=== PATIENT | male | born 1965 | race American Indian/Alaskan Native ===

== ENCOUNTER 2017-10-10 11:56 | Emergency (ER) | payer SELFPAY ==
[2017-10-10 16:56] VITALS: BP 115/72
--- NOTE | 2017-10-10 18:08 | Emergency Department Report ---
ED General Adult HPI - General Chief complaint: Upper Respiratory Infection Stated complaint: COLD SYMPTOMS Time Seen by Provider: 10/10/17 17:20 Source: patient Mode of arrival: Ambulatory Limitations: No Limitations - History of Present Illness Initial comments: PT c/o "stuffy nose" PT states symptoms have progressively worsened over the last 4- 6 months. PT reports drainage that gets stuck in his throat. PT states he has to "work hard" to get it up. PT states he has had nasal drainage and intermittent headaches. PT states he has not taken anything for the symptoms. Triage note mentioned that pt was SOB. When asked if he felt SOB, he said yes, his nose was stuffy. PT states he can not breathe through his nose. PT denies having difficulty moving air into lungs/ chest. States he can breath with mouth open. Denies wheezing or gasping for air. MD Complaint: C/C/C -: Gradual Location: head, face, chest Consistency: constant Worsens with: other (gradually ) Associated Symptoms: cough, malaise. denies: chest pain, fever/chills, nausea/ vomiting, rash Treatments Prior to Arrival: none - Related Data Previous Rx's Medication Instructions Recorded Last Taken Type Amoxicillin/K Clav Tab [Augmentin 1 tab PO Q12HR #20 tab 10/10/17 Unknown Rx 875 mg] Benzonatate [Tessalon Perles] 100 mg PO Q8HR PRN #12 capsule 10/10/17 Unknown Rx Allergies Allergy/AdvReac Type Severity Reaction Status Date / Time No Known Allergies Allergy Verified 08/16/15 13:26 ED Review of Systems ROS: Stated complaint: COLD SYMPTOMS Other details as noted in HPI Comment: All other systems reviewed and negative Constitutional: malaise. denies: chills, fever ENT: throat pain, congestion. denies: ear pain, hearing loss Respiratory: cough. denies: shortness of breath, wheezing Cardiovascular: denies: chest pain ED Past Medical Hx - Past Medical History Hx Kidney Stones: Yes - Social History Smoking Status: Current Some Day Smoker Substance Use Type: None - Medications Home Medications: Home Medications Medication Instructions Recorded Confirmed Last Taken Type Amoxicillin/K Clav Tab [Augmentin 1 tab PO Q12HR #20 tab 10/10/17 Unknown Rx 875 mg] Benzonatate [Tessalon Perles] 100 mg PO Q8HR PRN #12 capsule 12/11/17 Unknown Rx ED Physical Exam - General Limitations: No Limitations General appearance: alert, in no apparent distress - Head Head exam: Present: atraumatic, normocephalic, other (allergic shinners ) - Eye Eye exam: Present: normal appearance, PERRL, EOMI. Absent: conjunctival injection, nystagmus - ENT ENT exam: Present: mucous membranes moist, TM's normal bilaterally, normal external ear exam, other (nasal drainage noted, + R frontal sinus ttp ) - Neck Neck exam: Present: normal inspection, full ROM. Absent: lymphadenopathy - Respiratory Respiratory exam: Present: normal lung sounds bilaterally. Absent: respiratory distress, wheezes, rales, rhonchi, chest wall tenderness - Cardiovascular Cardiovascular Exam: Present: regular rate, normal rhythm, normal heart sounds - GI/Abdominal GI/Abdominal exam: Present: soft. Absent: tenderness, guarding - Extremities Exam Extremities exam: Present: normal inspection, full ROM - Back Exam Back exam: Present: normal inspection, full ROM. Absent: tenderness, CVA tenderness (R), CVA tenderness (L) - Neurological Exam Neurological exam: Present: alert, oriented X3, normal gait - Psychiatric Psychiatric exam: Present: normal affect, normal mood - Skin Skin exam: Present: warm, dry, intact, normal color ED Course Vital Signs 10/10/17 10/10/17 12:35 16:56 Temperature 98.4 F 97.8 F Pulse Rate 84 64 Respiratory 18 18 Rate Blood Pressure 133/92 Blood Pressure 115/72 [Right] O2 Sat by Pulse 100 Oximetry - Reevaluation(s) Reevaluation #1: 10/10/17 18:35 PT aware of XR result and plan of care. - Pulse Oximetry Interpretation Digit-Finger Initial Pulse Oximetry Readin Actions Taken: none ED Medical Decision Making - Radiology Data Radiology results: report reviewed CXR -NAP - Differential Diagnosis pna, bronchitis, sinusitis Critical Care Time: No Critical care attestation.: If time is entered above; I have spent that time in minutes in the direct care of this critically ill patient, excluding procedure time. ED Disposition Clinical Impression: Sinusitis Qualifiers: Sinusitis location: frontal Chronicity: acute Recurrence: not specified as recurrent Qualified Code(s): J01.10 - Acute frontal sinusitis, unspecified Disposition: DC-01 TO HOME OR SELFCARE Is pt being admited?: No Does the pt Need Aspirin: No Condition: Stable Instructions: Sinusitis (ED), Acute Cough (ED) Additional Instructions: drink plenty of water OTC Motrin/ Tylenol as needed for aches or pains Finish all of your antibiotics OTC normal saline nasal spray Prescriptions: Amoxicillin/K Clav Tab [Augmentin 875 mg] 1 tab PO Q12HR #20 tab Benzonatate [Tessalon Perles] 100 mg PO Q8HR PRN #12 capsule PRN Reason: Cough Referrals: TATE REID DO [Primary Care Provider] - 3-5 Days ISAAK CORTES MD [Staff Physician] - 3-5 Days [facility] [Outside] - 3-5 Days Forms: Accompanied Note, Work/School Release Form(ED) Time of Disposition: 18:41
--- NOTE | 2017-10-10 18:30 | XRay Report ---
FINAL REPORT EXAM: XR CHEST ROUTINE 2V HISTORY: cough x 4 months TECHNIQUE: Two view chest PA and lateral PRIORS: None. FINDINGS: Cardiac and mediastinal contours are unremarkable. No focal pulmonary infiltrate is identified. No pleural fluid collection seen. Pulmonary vasculature is unremarkable. IMPRESSION: Negative two-view chest
== END 2017-10-10 18:55 | disposition home or self-care (01) ==
LOC: ED 11:56
DX: J01.10 Acute frontal sinusitis, unspecified (principal); F17.200 Nicotine dependence, unspecified, uncomplicated; Z87.442 Personal history of urinary calculi
CPT/HCPCS: 71020; 99283

== ENCOUNTER 2018-03-27 14:46 | Inpatient (IN) | payer SELFPAY ==
[2018-03-27] MEDS ORDERED: ASPIRIN PO ONE (15:53)
[2018-03-27 16:23] LABS: Basophils % (Auto) 0.5 % (0.0-1.8); Eosinophils # (Auto) 0.2 K/mm3 (0.0-0.4); Eosinophils % (Auto) 2.6 % (0.0-4.3); Hematocrit 46.1 % (35.5-45.6); Hemoglobin 15.5 gm/dl (11.8-15.2); Lymphocytes # (Auto) 1.5 K/mm3 (1.2-5.4); Lymphocytes % (Auto) 16.1 % (13.4-35.0); Mean Corpuscular HGB Conc 34 % (32-34); Mean Corpuscular Hemoglobin 29 pg (28-32); Mean Corpuscular Volume 86 fl (84-94); Monocytes # (Auto) 0.8 K/mm3 (0.0-0.8); Monocytes % (Auto) 8.2 % (0.0-7.3); Platelet Count 316 K/mm3 (140-440); Red Blood Count 5.34 M/mm3 (3.65-5.03); Red Cell Distribution Width 14.1 % (13.2-15.2)
[2018-03-27 16:36] LABS: BUN/Creatinine Ratio 18; Blood Urea Nitrogen 16 mg/dL (9-20); Calcium 8.4 mg/dL (8.4-10.2); Hemolysis Index 8
--- NOTE | 2018-03-27 17:56 | Emergency Department Report ---
HPI - General Chief Complaint: Chest Pain Time Seen by Provider: 03/27/18 17:39 - HPI HPI: Room 6 The patient is a 52-year-old male presenting with a chief complaint of chest pain. The patient states he walked to a blood donation center and donated blood at 09:00. The patient states he walked home and felt dehydrated as he was very diaphoretic. The patient states he sat down and relax to improve. At approximate 14:00 patient states he developed sharp constant substernal chest pain associated with diaphoresis. Patient denies shortness of breath nausea or vomiting. The patient states his pain persisted until approximately one hour after arriving in the emergency department. The patient states she's never had a stress test or cardiac catheterization Location: Chest Duration: [See above] Quality: Sharp Severity: Currently 0/10 Modifying factors: [see above] Context: [see above] Mode of transportation: [not driving] ED Past Medical Hx - Past Medical History Previous Medical History?: Yes Hx Kidney Stones: Yes - Surgical History Past Surgical History?: No - Family History Family history: no significant - Social History Smoking Status: Current Some Day Smoker Substance Use Type: None (denies illicit drug use) - Medications Home Medications: Home Medications Medication Instructions Recorded Confirmed Last Taken Type No Known Home Medications [No 03/27/18 03/27/18 Unknown History Reported Home Medications] ED Review of Systems ROS: Stated complaint: CHEST PAIN Other details as noted in HPI Constitutional: diaphoresis Eyes: denies: eye pain ENT: denies: throat pain Respiratory: denies: shortness of breath Cardiovascular: chest pain Gastrointestinal: denies: abdominal pain, nausea, vomiting Genitourinary: denies: dysuria Musculoskeletal: denies: back pain Neurological: denies: headache Physical Exam - Physical Exam Vital Signs: Vital Signs 03/27/18 03/27/18 03/27/18 15:39 15:42 15:57 Temperature 98.5 F Pulse Rate 69 65 Respiratory 13 13 Rate Blood Pressure 128/90 O2 Sat by Pulse 98 97 98 Oximetry 03/27/18 03/27/18 03/27/18 15:59 16:00 17:00 Temperature Pulse Rate 69 64 58 L Respiratory 13 16 Rate Blood Pressure 124/87 128/82 O2 Sat by Pulse 98 97 Oximetry Physical Exam: GENERAL: The patient is well-developed well-nourished male lying on stretcher not appear to be in acute distress. [] HEENT: Normocephalic. Atraumatic. Extraocular motions are intact. Patient has moist mucous membranes. NECK: Supple. Trachea midline CHEST/LUNGS: Clear to auscultation. There is no respiratory distress noted. HEART/CARDIOVASCULAR: Regular. There is no tachycardia. There is no gallop rub or murmur. ABDOMEN: Abdomen is soft, nontender. Patient has normal bowel sounds. There is no abdominal distention. SKIN: There is no rash. There is no edema. There is no diaphoresis. NEURO: The patient is awake, alert, and oriented. The patient is cooperative. The patient has normal speech MUSCULOSKELETAL: There is no evidence of acute injury. ED Course Vital Signs 03/27/18 03/27/18 03/27/18 15:39 15:42 15:57 Temperature 98.5 F Pulse Rate 69 65 Respiratory 13 13 Rate Blood Pressure 128/90 O2 Sat by Pulse 98 97 98 Oximetry 03/27/18 03/27/18 03/27/18 15:59 16:00 17:00 Temperature Pulse Rate 69 64 58 L Respiratory 13 16 Rate Blood Pressure 124/87 128/82 O2 Sat by Pulse 98 97 Oximetry ED Medical Decision Making - Lab Data Result diagrams: 03/27/18 15:59 03/27/18 15:59 Laboratory Tests 03/27/18 03/27/18 15:59 15:59 WBC 9.4 RBC 5.34 H Hgb 15.5 H Hct 46.1 H MCV 86 MCH 29 MCHC 34 RDW 14.1 Plt Count 316 Lymph % (Auto) 16.1 Long % (Auto) 8.2 H Eos % (Auto) 2.6 Baso % (Auto) 0.5 Lymph # 1.5 Long # 0.8 Eos # 0.2 Baso # 0.0 Seg Neutrophils % 72.6 H Seg Neutrophils # 6.8 Sodium 137 Potassium 4.1 Chloride 101.0 Carbon Dioxide 27 Anion Gap 13 BUN 16 Creatinine 0.9 Estimated GFR > 60 BUN/Creatinine Ratio 18 Glucose 105 H Calcium 8.4 Troponin T < 0.010 - EKG Data -: EKG Interpreted by De EKG shows normal: sinus rhythm Rate: normal - EKG Data When compared to previous EKG there are: previous EKG unavailable Interpretation: other (early repolarization) - Radiology Data Radiology results: image reviewed (chest x-ray) interpreted by me: Chest x-ray-no focal infiltrates, no pneumothorax - Differential Diagnosis ACS, GERD, pericarditis Critical care attestation.: If time is entered above; I have spent that time in minutes in the direct care of this critically ill patient, excluding procedure time. ED Disposition Clinical Impression: Chest pain Disposition: DC-09 OP ADMIT IP TO THIS HOSP Is pt being admited?: Yes Does the pt Need Aspirin: Yes Condition: Fair Instructions: Chest Pain (ED) Referrals: PRIMARY CARE,MD [Primary Care Provider] - 3-5 Days Time of Disposition: 18:13 (hospitalist paged (Dr Conner))
--- NOTE | 2018-03-27 18:28 | XRay Report ---
FINAL REPORT EXAM: XR CHEST 1V AP HISTORY: chest pain TECHNIQUE: AP portable view of the chest PRIORS: CXR 10/10/2017 FINDINGS: Lines, tubes, and devices: N/A Lungs and pleura: Trachea is normal in position. Lungs are clear of infiltrate, pleural effusion, vascular congestion, or pneumothorax. No change. Cardiomediastinal silhouette: Cardiac and mediastinal silhouettes are unremarkable. Other: Bony structures are intact. IMPRESSION: No acute cardiopulmonary process seen. No change.
--- NOTE | 2018-03-27 21:43 | History and Physical Report ---
History of Present Illness Date of examination: 03/27/18 Date of admission: 03/27/18 18:45 Chief complaint: Chief complaint: Left-sided chest pain since a.m. History of present illness: DIANE: 52-year-old -Citizen Of [place] male with no significant past medical history except for kidney stones comes in for retrosternal chest pain since morning. Patient also has diaphoresis. Patient apparently donated blood at 9 AM. Since then patient has been having some chest discomfort. And some diaphoresis. No shortness of breath no palpitations. Patient never had a stress test or cardiac cath in the past. No exacerbating or precipitating factors Past Medical History Previous Medical History?: Yes Hx Kidney Stones: Yes Surgical History Past Surgical History?: No Family History Family history: no significant Social History Smoking Status: Current Some Day Smoker Substance Use Type: None (denies illicit drug use) Medications Home Medications: Home Medications Medication Instructions Recorded Confirmed Last Taken Type No Known Home Medications [No 03/27/18 03/27/18 Unknown History Reported Home Medications] Review of Systems ROS: Stated complaint: CHEST PAIN Other details as noted in HPI Constitutional: diaphoresis Eyes: denies: eye pain ENT: denies: throat pain Respiratory: denies: shortness of breath Cardiovascular: chest pain Gastrointestinal: denies: abdominal pain, nausea, vomiting Genitourinary: denies: dysuria Musculoskeletal: denies: back pain Neurological: denies: headache for a 14 point review of systems done--essentially negative. Medications and Allergies Allergies Allergy/AdvReac Type Severity Reaction Status Date / Time No Known Allergies Allergy Verified 08/16/15 13:26 Home Medications Medication Instructions Recorded Confirmed Last Taken Type No Known Home Medications [No 03/27/18 03/27/18 Unknown History Reported Home Medications] Exam - Physical Exam Narrative exam: Lying in bed comfortably - Constitutional Vitals: Temp Pulse Resp BP Pulse Ox 98.6 F 70 20 120/81 99 03/27/18 20:00 03/27/18 20:00 03/27/18 20:00 03/27/18 20:00 03/27/18 20:00 General appearance: Present: no acute distress, well-nourished - EENT Eyes: Present: PERRL ENT: hearing intact, clear oral mucosa - Neck Neck: Present: supple, normal ROM - Respiratory Respiratory effort: normal Respiratory: bilateral: CTA - Cardiovascular Heart rate: 70 Rhythm: regular Heart Sounds: Present: S1 & S2. Absent: rub, click - Extremities Extremities: no ischemia, pulses intact, pulses symmetrical, No edema Peripheral Pulses: within normal limits - Abdominal General gastrointestinal: Present: soft, non-tender, non-distended, normal bowel sounds Male genitourinary: Present: normal - Rectal Rectal Exam: deferred - Integumentary Integumentary: Present: clear, warm, dry - Musculoskeletal Musculoskeletal: gait normal, strength equal bilaterally - Psychiatric Psychiatric: appropriate mood/affect, intact judgment & insight - Neurologic Neurologic: CNII-XII intact, moves all extremities - Allied Health Allied health notes reviewed: nursing, case management Results - Labs CBC & Chem 7: 03/27/18 15:59 03/27/18 15:59 Labs: Laboratory Last Values WBC 9.4 K/mm3 (4.5-11.0) 03/27/18 15:59 RBC 5.34 M/mm3 (3.65-5.03) H 03/27/18 15:59 Hgb 15.5 gm/dl (11.8-15.2) H 03/27/18 15:59 Hct 46.1 % (35.5-45.6) H 03/27/18 15:59 MCV 86 fl (84-94) 03/27/18 15:59 MCH 29 pg (28-32) 03/27/18 15:59 MCHC 34 % (32-34) 03/27/18 15:59 RDW 14.1 % (13.2-15.2) 03/27/18 15:59 Plt Count 316 K/mm3 (140-440) 03/27/18 15:59 Lymph % (Auto) 16.1 % (13.4-35.0) 03/27/18 15:59 Crockett % (Auto) 8.2 % (0.0-7.3) H 03/27/18 15:59 Eos % (Auto) 2.6 % (0.0-4.3) 03/27/18 15:59 Baso % (Auto) 0.5 % (0.0-1.8) 03/27/18 15:59 Lymph # 1.5 K/mm3 (1.2-5.4) 03/27/18 15:59 [place]ckett # 0.8 K/mm3 (0.0-0.8) 03/27/18 15:59 Eos # 0.2 K/mm3 (0.0-0.4) 03/27/18 15:59 Baso # 0.0 K/mm3 (0.0-0.1) 03/27/18 15:59 Seg Neutrophils % 72.6 % (40.0-70.0) H 03/27/18 15:59 Seg Neutrophils # 6.8 K/mm3 (1.8-7.7) 03/27/18 15:59 Sodium 137 mmol/L (137-145) 03/27/18 15:59 Potassium 4.1 mmol/L (3.6-5.0) 03/27/18 15:59 Chloride 101.0 mmol/L (98-107) 03/27/18 15:59 Carbon Dioxide 27 mmol/L (22-30) 03/27/18 15:59 Anion Gap 13 mmol/L 03/27/18 15:59 BUN 16 mg/dL (9-20) 03/27/18 15:59 Creatinine 0.9 mg/dL (0.8-1.5) 03/27/18 15:59 Estimated GFR > 60 ml/min 03/27/18 15:59 BUN/Creatinine Ratio 18 % 03/27/18 15:59 Glucose 105 mg/dL (75-100) H 03/27/18 15:59 Calcium 8.4 mg/dL (8.4-10.2) 03/27/18 15:59 Troponin T < 0.010 ng/mL (0.00-0.029) 03/27/18 17:54 - Imaging and Cardiology EKG: report reviewed (normal sinus rhythm 70/m no acute ST-T wave changes) Assessment and Plan Advance Directives: Yes (full code) VTE prophylaxis?: Chemical Plan of care discussed with patient/family: Yes - Patient Problems (1) Chest pain Current Visit: Yes Status: Acute Qualifiers: Chest pain type: unspecified Qualified Code(s): R07.9 - Chest pain, unspecified Plan to address problem: Chest pain workup ---treadmill stress test in the morning and serial cardiac enzymes. (2) Nicotine dependence Current Visit: Yes Status: Chronic Qualifiers: Nicotine product type: cigarettes Plan to address problem: Patient does not want NicoDerm patch (3) DVT prophylaxis Current Visit: Yes Status: Acute Plan to address problem: On heparin
[2018-03-27] MEDS ORDERED: ZOFRAN IV PRN (21:44)
[2018-03-27] MEDS ORDERED: MORPHINE IV PRN (21:44)
[2018-03-27] MEDS ORDERED: AMBIEN PO PRN (21:44)
[2018-03-27] MEDS ORDERED: PERCOCET 5/325 PO PRN (21:44)
[2018-03-27] MEDS ORDERED: TYLENOL PO PRN (21:44)
[2018-03-27] MEDS ORDERED: SODIUM CHLORIDE FLUSH SYRINGE 10 ML IV PRN (21:44)
[2018-03-27] MEDS: PEPCID IV SCH (22:02)
[2018-03-27] MEDS: SODIUM CHLORIDE FLUSH SYRINGE 10 ML IV SCH (22:03)
[2018-03-27] MEDS: NACL 0.9% 1000 ML 1,000 ML IV SCH (23:44)
[2018-03-28 07:18] LABS: Basophils % (Auto) 0.4 % (0.0-1.8); Eosinophils # (Auto) 0.6 K/mm3 (0.0-0.4); Eosinophils % (Auto) 7.6 % (0.0-4.3); Hematocrit 41.3 % (35.5-45.6); Hemoglobin 14.1 gm/dl (11.8-15.2); Lymphocytes # (Auto) 2.3 K/mm3 (1.2-5.4); Lymphocytes % (Auto) 28.2 % (13.4-35.0); Mean Corpuscular HGB Conc 34 % (32-34); Mean Corpuscular Hemoglobin 29 pg (28-32); Mean Corpuscular Volume 86 fl (84-94); Monocytes # (Auto) 0.9 K/mm3 (0.0-0.8); Monocytes % (Auto) 11.5 % (0.0-7.3); Platelet Count 301 K/mm3 (140-440); Red Blood Count 4.82 M/mm3 (3.65-5.03)
[2018-03-28 07:30] LABS: Alanine Aminotransferase 19 units/L (7-56); Albumin 3.3 g/dL (3.9-5); BUN/Creatinine Ratio 14; Blood Urea Nitrogen 14 mg/dL (9-20); Hemolysis Index 7
[2018-03-28 07:53] LABS: Chol/HDL Ratio 4.17 %; HDL Cholesterol 39 mg/dL (40-59); LDL Cholesterol,Direct 119 mg/dL (50-130)
[2018-03-28] MEDS ORDERED: BABY ASPIRIN PO SCH (10:00)
[2018-03-28] MEDS: NACL 0.9% 1000 ML 1,000 ML IV SCH (13:48)
--- NOTE | 2018-03-28 13:48 | Consultation ---
History of Present Illness Consult date: 03/28/18 Requesting physician: FELIX DE LEÓN Consult reason: other (nstemi) History of present illness: The pt is a 52 YO male with a past medical history significant for nephrolithiasis and occasional tobacco use. He is previously unknown to our practice. He presented with c/o chest pain since yesterday. Pt reports that yesterday AM, he awoke in his normal state of health and donated some blood. After his blood donation, he was walking and noted the onset of his chest pain ( around 2PM yesterday). He describes his pain as a nonexertional, nonradiating, constant, midsternal burning pain. The pain lasted for approx 1 hour and was alleviated by ASA which he received in the ED. On evaluation, the pt denies any current complaints. He denies any prior cardiac issues or cardiac evaluation. Pt is currently employed as a fork-hi lift operator and has been tolerating physical activity without difficulty. Past History Past Medical History: other (kidney stones) Past Surgical History: No surgical history Social history: smoking (occasional tobacco ). denies: alcohol abuse, prescription drug abuse Medications and Allergies Allergies Allergy/AdvReac Type Severity Reaction Status Date / Time No Known Allergies Allergy Verified 08/16/15 13:26 Home Medications Medication Instructions Recorded Confirmed Last Taken Type No Known Home Medications [No 03/27/18 03/27/18 Unknown History Reported Home Medications] Active Meds: Active Medications Acetaminophen (Tylenol) 650 mg PO Q4H PRN PRN Reason: Pain MILD(1-3)/Fever >100.5/RAINES Aspirin (Baby Aspirin) 81 mg PO QDAY [facility] Atorvastatin Calcium (Lipitor) 40 mg PO QHS [facility] Enoxaparin Sodium (Lovenox) 90 mg 1 mg/kg (90 mg) SUB-Q Q12HR [facility] Famotidine (Pepcid) 20 mg IV BID [facility] Last Admin: 03/27/18 22:02 Dose: 20 mg Sodium Chloride (Nacl 0.9% 1000 Ml) 1,000 mls @ 75 mls/hr IV DIRECT SERENA Last Admin: 03/27/18 23:44 Dose: 75 mls/hr Morphine Sulfate (Morphine) 2 mg IV Q4H PRN PRN Reason: Pain, Moderate (4-6) Last Admin: 03/27/18 22:02 Dose: 2 mg Ondansetron HCl (Zofran) 4 mg IV Q8H PRN PRN Reason: Nausea And Vomiting Oxycodone/Acetaminophen (Percocet 5/325) 1 tab PO Q6H PRN PRN Reason: Pain, Moderate (4-6) Sodium Chloride (Sodium Chloride Flush Syringe 10 Ml) 10 ml IV BID SERENA Last Admin: 03/27/18 22:03 Dose: 10 ml Sodium Chloride (Sodium Chloride Flush Syringe 10 Ml) 10 ml IV PRN PRN PRN Reason: LINE FLUSH Zolpidem Tartrate (Ambien) 5 mg PO QHS PRN PRN Reason: Insomnia Review of Systems Constitutional: no weight loss, no weight gain, no fever, no chills, no sweats Ears, nose, mouth and throat: no ear pain, no nose pain, no sinus pressure, no sinus pain Cardiovascular: chest pain, no orthopnea, no palpitations, no rapid/irregular heart beat, no edema, no syncope, no lightheadedness, no shortness of breath Respiratory: no cough, no shortness of breath, no dyspnea on exertion, no congestion, no wheezing, no pain on inspiration Gastrointestinal: no abdominal pain, no nausea, no vomiting, no diarrhea, no constipation, no change in bowel habits Genitourinary Male: no dysuria, no hematuria, no flank pain, no discharge, no urinary frequency, no urinary hesitancy Musculoskeletal: no neck stiffness, no neck pain, no shooting arm pain, no arm numbness/tingling, no low back pain, no shooting leg pain, no leg numbness/ tingling, no redness of joints Integumentary: no rash, no pruritis, no redness, no sores, no wounds Neurological: no head injury, no weakness, no parathesias, no numbness, no tingling, no seizures, no syncope Psychiatric: no anxiety Endocrine: no cold intolerance, no heat intolerance Hematologic/Lymphatic: no easy bruising, no easy bleeding, no lymphadenopathy Allergic/Immunologic: no urticaria, no wheezing, no persistent infections Physical Examination Vital Signs Temp Pulse Resp BP Pulse Ox 98.5 F 69 13 128/90 98 03/27/18 15:39 03/27/18 15:39 03/27/18 15:39 03/27/18 15:39 03/27/18 15:39 General appearance: no acute distress HEENT: Positive: PERRL, Normocephaly, Mucus Membranes Moist Neck: Positive: neck supple, trachea midline Cardiac: Positive: Reg Rate and Rhythm, S1/S2 Lungs: Positive: clear to auscultation Neuro: Positive: Grossly Intact, Cranial Nerve 2-12 Intact Abdomen: Positive: Soft. Negative: Tender Skin: Positive: Clear. Negative: Rash, Wound Musculoskeletal: No Fluid Collection, No Pain, Normal Range of Motion Extremities: Absent: edema Results 03/28/18 05:40 03/28/18 05:40 Cardiac Enzymes 03/28/18 Range/Units 05:40 AST 20 (5-40) units/L Lipids 03/28/18 Range/Units 05:40 Triglycerides 76 (2-149) mg/dL Cholesterol 163 (50-199) mg/dL HDL Cholesterol 39 L (40-59) mg/dL Cholesterol/HDL Ratio 4.17 % CBC 03/27/18 03/28/18 Range/Units 15:59 05:40 WBC 9.4 8.0 (4.5-11.0) K/mm3 RBC 5.34 H 4.82 (3.65-5.03) M/mm3 Hgb 15.5 H 14.1 (11.8-15.2) gm/dl Hct 46.1 H 41.3 (35.5-45.6) % Plt Count 316 301 (140-440) K/mm3 Lymph # 1.5 2.3 (1.2-5.4) K/mm3 Gage # 0.8 0.9 H (0.0-0.8) K/mm3 Eos # 0.2 0.6 H (0.0-0.4) K/mm3 Baso # 0.0 0.0 (0.0-0.1) K/mm3 Comprehensive Metabolic Panel 03/27/18 03/28/18 Range/Units 15:59 05:40 Sodium 137 138 (137-145) mmol/L Potassium 4.1 4.1 (3.6-5.0) mmol/L Chloride 101.0 102.9 (98-107) mmol/L Carbon Dioxide 27 27 (22-30) mmol/L BUN 16 14 (9-20) mg/dL Creatinine 0.9 1.0 (0.8-1.5) mg/dL Glucose 105 H 97 (75-100) mg/dL Calcium 8.4 8.0 L (8.4-10.2) mg/dL AST 20 (5-40) units/L ALT 19 (7-56) units/L Alkaline Phosphatase 50 (35-129) units/L Total Protein 5.6 L (6.3-8.2) g/dL Albumin 3.3 L (3.9-5) g/dL - Imaging and Cardiology Echo: pending EKG: report reviewed, image reviewed EKG interpretations - Telemetry EKG Rhythm: Sinus Rhythm - EKG Sinus rhythms and dysrhythmias: sinus rhythm Chamber hypertrophy or enlargement: left ventricular hypertro Repolarization changes or abnormalities: repolarization abn secondary to ventricular hypertrophy Assessment and Plan Assessment: Chest pain - currently resolved NSTEMI type I Abnormal EKG H/o occasional tobacco use - cessation encouraged Plan: Obtain echo. Cardiac enzymes trending upwards; cont to trend. Pt is currently chest pain free. Cont ASA and lipitor. Continue lovenox BID per primary. Plan for coronary angiography in AM pending pt remains clinically stable overnight. NPO after MN. Assessment and plan reviewed with pt at bedside. The patient has been seen in conjunction with Dr. Fajardo who agrees with the assessment and plan of care.
[2018-03-28] MEDS: PEPCID IV SCH ×2 (13:49→22:40)
[2018-03-28] MEDS: LOVENOX SUB-Q SCH ×2 (13:49→22:52)
[2018-03-28] MEDS: SODIUM CHLORIDE FLUSH SYRINGE 10 ML IV SCH ×2 (13:50→22:42)
--- NOTE | 2018-03-28 13:54 | Progress Note ---
Assessment and Plan Chest pain - currently resolved, r/o ACS NSTEMI type I with Abnormal EKG H/o occasional tobacco use - cessation encouraged Epigastric pain, CT abdomen w/o contrast ordered - conr aspirin, statin, cardiology consulted - plan for cardiac cath tomorrow, keep NPO after midnight - will follow CT abdome/pelvis Physical exam: General appearance: no acute distress HEENT: Positive: PERRL, Normocephaly, Mucus Membranes Moist Neck: Positive: neck supple, trachea midline Cardiac: Positive: Reg Rate and Rhythm, S1/S2 Lungs: Positive: clear to auscultation Neuro: Positive: Grossly Intact, Cranial Nerve 2-12 Intact Abdomen: Positive: Soft. Negative: Tender Skin: Positive: Clear. Negative: Rash, Wound Musculoskeletal: No Fluid Collection, No Pain, Normal Range of Motion Extremities: Absent: edema Subjective Date of service: 03/28/18 Interval history: Pt seen and examined c/o intermittent chest pain but states not having now but endorse crampy epigastric pain Objective - Constitutional Vitals: Vital Signs - 12hr 03/28/18 04:40 Temperature 98.5 F Pulse Rate 61 Respiratory 18 Rate Blood Pressure 111/75 [Left] O2 Sat by Pulse 100 Oximetry - Labs CBC & Chem 7: 03/29/18 Unknown 03/29/18 Unknown Labs: Abnormal lab results 03/27/18 03/27/18 03/28/18 Range/Units 15:59 15:59 05:40 RBC 5.34 H (3.65-5.03) M/mm3 Hgb 15.5 H (11.8-15.2) gm/dl Hct 46.1 H (35.5-45.6) % Green % (Auto) 8.2 H 11.5 H (0.0-7.3) % Eos % (Auto) 7.6 H (0.0-4.3) % Green # 0.9 H (0.0-0.8) K/mm3 Eos # 0.6 H (0.0-0.4) K/mm3 Seg Neutrophils % 72.6 H (40.0-70.0) % Glucose 105 H (75-100) mg/dL Calcium (8.4-10.2) mg/dL Troponin T (0.00-0.029) ng/mL Total Protein (6.3-8.2) g/dL Albumin (3.9-5) g/dL HDL Cholesterol (40-59) mg/dL 03/28/18 Range/Units 05:40 RBC (3.65-5.03) M/mm3 Hgb (11.8-15.2) gm/dl Hct (35.5-45.6) % Green % (Auto) (0.0-7.3) % Eos % (Auto) (0.0-4.3) % Green # (0.0-0.8) K/mm3 Eos # (0.0-0.4) K/mm3 Seg Neutrophils % (40.0-70.0) % Glucose (75-100) mg/dL Calcium 8.0 L (8.4-10.2) mg/dL Troponin T 0.164 H* D (0.00-0.029) ng/mL Total Protein 5.6 L (6.3-8.2) g/dL Albumin 3.3 L (3.9-5) g/dL HDL Cholesterol 39 L (40-59) mg/dL
[2018-03-28] MEDS ORDERED: NACL 0.9% 500 ML 500 ML IV SCH (15:00)
[2018-03-28 16:52] LABS: Creatine Kinase MB 13.8 ng/mL (0.0-4.0)
[2018-03-28] MEDS: LOPRESSOR PO SCH (22:39)
[2018-03-29] MEDS: NACL 0.9% 1000 ML 1,000 ML IV SCH (03:17)
--- NOTE | 2018-03-29 05:30 | Cat Scan Report ---
FINAL REPORT EXAM: CT ABDOMEN PELVIS WO CON HISTORY: Abdominal pain. TECHNIQUE: Axial CT images of the abdomen and pelvis were obtained, following the administration of oral contrast only. Coronal and sagittal reformatted images were also obtained. No prior studies are available for comparison. FINDINGS: The unenhanced liver, biliary tree, gallbladder, pancreas, and adrenal glands are unremarkable. The spleen is diminutive in appearance. The unenhanced kidneys demonstrate no discrete renal lesions. There are no radiopaque urinary tract calculi or evidence of urinary tract obstruction. Oral contrast has just started to reach the transverse colon. There is residual stool in the colon. There are multiple diverticula in the descending and sigmoid colon, without evidence of acute diverticulitis. There is no intestinal obstruction or free air. Of note, the appendix is normal. The abdominal aorta is normal in caliber, mildly calcified. There is no pathologic abdominal or pelvic lymphadenopathy. There is no free or loculated fluid collection. The prostate gland is normal in size. The urinary bladder is not fully distended, though there does appear to be mild diffuse urinary bladder wall thickening, nonspecific but most commonly due to cystitis. There is a small fat containing left inguinal hernia. There is minimal patchy soft tissue stranding in the subcutaneous fat of the left infraumbilical anterior abdominal wall, with associated scattered small foci of subcutaneous gas. Query subcutaneous injections. Mild spondylotic and degenerative changes are seen in the lumbar spine. There is mild anterior wedging of the T12 and L1 vertebral bodies, which is of indeterminate age and may represent normal developmental variant. Minimal dependent changes are seen at both posterior lung bases. IMPRESSION: 1. No intestinal obstruction or free air. Left colonic diverticula. Normal CT appearance of the appendix. 2. Mild diffuse urinary bladder wall thickening, nonspecific but most commonly due to cystitis. Clinical correlation is recommended. 3. Minimal patchy soft tissue stranding in the subcutaneous fat of the left anterior abdominal wall, with adjacent scattered foci of subcutaneous air, presumably from subcutaneous injections. Correlation with clinical history is recommended. 4. Mild anterior wedging of the T12 and L1 vertebral bodies, of indeterminate age and possibly normal developmental variant. Correlation with patient's clinical symptoms and physical exam is suggested.
[2018-03-29 06:26] LABS: Hematocrit 38.4 % (35.5-45.6); Hemoglobin 13.2 gm/dl (11.8-15.2); Mean Corpuscular HGB Conc 34 % (32-34); Mean Corpuscular Hemoglobin 29 pg (28-32); Mean Corpuscular Volume 85 fl (84-94); Platelet Count 291 K/mm3 (140-440); Red Blood Count 4.49 M/mm3 (3.65-5.03); Red Cell Distribution Width 13.9 % (13.2-15.2)
[2018-03-29 06:34] LABS: INR 0.95 (0.87-1.13)
[2018-03-29 06:35] LABS: Partial Thromboplastin Time 43.2 Sec. (24.2-36.6)
[2018-03-29 06:57] LABS: BUN/Creatinine Ratio 16; Blood Urea Nitrogen 13 mg/dL (9-20); Calcium 8.1 mg/dL (8.4-10.2); Hemolysis Index 1
[2018-03-29] MEDS ORDERED: ECOTRIN PO NR (09:54)
[2018-03-29] MEDS ORDERED: ASPIRIN PO SCH (10:00)
[2018-03-29] MEDS ORDERED: NACL 0.9% 500 ML 500 ML IV SCH ×2 (10:00→14:00)
[2018-03-29] MEDS ORDERED: HEPARIN/NS 5000 UNIT/500ML(CATH LAB) 1,000 ML IR ONE (11:42)
[2018-03-29] MEDS ORDERED: NITROGLYCERIN SYRINGE 3 ML ONE (11:43)
[2018-03-29] MEDS ORDERED: NACL 0.9% 500 ML 500 ML ONE (11:44)
[2018-03-29] MEDS: CALAN ONE ×3 (12:15→12:20)
[2018-03-29] MEDS: VERSED ONE (12:15)
[2018-03-29] MEDS: SUBLIMAZE ONE ×2 (12:15→12:20)
[2018-03-29] MEDS: HEPARIN 10,000 UNITS/10 ML ONE ×4 (12:15→12:40)
[2018-03-29] MEDS: XYLOCAINE 2% INFILTRATI ONE ×2 (12:15→12:17)
[2018-03-29] MEDS ORDERED: NACL 0.9% 100 ML ONE (12:29)
[2018-03-29] MEDS ORDERED: AGGRASTAT (BOLUS) IV ONE (13:05)
--- NOTE | 2018-03-29 13:10 | Progress Note ---
Assessment and Plan Assessment: Chest pain - currently resolved NSTEMI type I Abnormal EKG CAD LAD thrombus H/o occasional tobacco use - cessation encouraged Plan: S/p [facility] this AM which showed LAD thrombus and mid circ lesion which may require intervention. Initiate aggrastat gtt and plan for repeat coronary angiography in AM. NPO after MN. Optimize anti-ischemic regimen - initiate Imdur. Obtain echo. Assessment and plan reviewed with pt and pt's family at bedside. The patient has been seen in conjunction with Dr. Navarro who agrees with the assessment and plan of care. Subjective Date of service: 03/29/18 Principal diagnosis: NSTEMI Interval history: pt for [facility] today. no current complaints. Objective Last Vital Signs Temp 97.8 F 03/29/18 07:57 Pulse 62 03/29/18 07:57 Resp 18 03/29/18 07:57 BP 142/89 03/29/18 07:57 Pulse Ox 100 03/29/18 08:13 - Physical Examination General: No Apparent Distress HEENT: Positive: PERRL, Normocephaly, Mucus Membranes Moist Neck: Positive: neck supple, trachea midline Cardiac: Positive: Reg Rate and Rhythm, S1/S2 Lungs: Positive: clear to auscultation Neuro: Positive: Grossly Intact, Cranial Nerve 2-12 Intact Abdomen: Positive: Soft. Negative: Tender Skin: Positive: Clear. Negative: Rash, Wound Musculoskeletal: No Fluid Collection, No Pain, Normal Range of Motion Extremities: Absent: edema - Labs and Meds Cardiac Enzymes 03/28/18 03/29/18 Range/Units 15:16 Unknown CK-MB (CK-2) 13.8 H 7.0 H (0.0-4.0) ng/mL Coagulation 03/29/18 Range/Units Unknown PT 13.2 (12.2-14.9) Sec. INR 0.95 (0.87-1.13) APTT 43.2 H (24.2-36.6) Sec. CBC 03/29/18 Range/Units Unknown WBC 6.9 (4.5-11.0) K/mm3 RBC 4.49 (3.65-5.03) M/mm3 Hgb 13.2 (11.8-15.2) gm/dl Hct 38.4 (35.5-45.6) % Plt Count 291 (140-440) K/mm3 Comprehensive Metabolic Panel 03/29/18 Range/Units Unknown Sodium 139 (137-145) mmol/L Potassium 4.3 (3.6-5.0) mmol/L Chloride 105.6 (98-107) mmol/L Carbon Dioxide 26 (22-30) mmol/L BUN 13 (9-20) mg/dL Creatinine 0.8 (0.8-1.5) mg/dL Glucose 98 (75-100) mg/dL Calcium 8.1 L (8.4-10.2) mg/dL - Imaging and Cardiology EKG: report reviewed, image reviewed Echo: pending - EKG Sinus rhythms and dysrhythmias: sinus rhythm Chamber hypertrophy or enlargement: left ventricular hypertro Repolarization changes or abnormalities: repolarization abn secondary to ventricular hypertrophy
[2018-03-29] MEDS: AGGRASTAT DRIP (12.5 MG/250 ML) 12,500 MCG/250 ML BAG IV SCH (15:10)
--- NOTE | 2018-03-29 15:15 | Progress Note ---
Assessment and Plan Chest pain - currently resolved, likely from CAD NSTEMI type I with Abnormal EKG, s/p cardiac cath today LAD thrombus, placed on aggrastat gtt H/o occasional tobacco use - cessation encouraged Epigastric pain, CT abdomen w/o contrast ordered, showed no acute process - cont aspirin, statin, cardiology following - S/p [facility] today showed LAD thrombus and mid circ lesion which may require intervention. - Initiated aggrastat gtt and plan for repeat coronary angiography in AM. Plan for NPO after MN. - initiated Imdur. follow 2d echo Physical exam: General appearance: no acute distress HEENT: Positive: PERRL, Normocephaly, Mucus Membranes Moist Neck: Positive: neck supple, trachea midline Cardiac: Positive: Reg Rate and Rhythm, S1/S2 Lungs: Positive: clear to auscultation Neuro: Positive: Grossly Intact, Cranial Nerve 2-12 Intact Abdomen: Positive: Soft. Negative: Tender Skin: Positive: Clear. Negative: Rash, Wound Musculoskeletal: No Fluid Collection, No Pain, Normal Range of Motion Extremities: Absent: edema Subjective Date of service: 03/29/18 Principal diagnosis: NSTEMI Interval history: Pt seen and examined s/p cath today, family at bedside updated pt denies any chest pain now, No SOB Objective - Constitutional Vitals: Vital Signs - 12hr 03/29/18 03/29/18 03/29/18 06:21 07:57 08:13 Temperature 97.7 F 97.8 F Pulse Rate 65 62 Respiratory 20 18 Rate Blood Pressure 124/85 142/89 O2 Sat by Pulse 100 99 100 Oximetry - Labs CBC & Chem 7: 03/30/18 05:11 03/30/18 05:11 Labs: Abnormal lab results 03/28/18 03/29/18 03/29/18 Range/Units 15:16 Unknown Unknown APTT 43.2 H (24.2-36.6) Sec. Calcium 8.1 L (8.4-10.2) mg/dL Total Creatine Kinase 335 H 350 H (55-170) units/L CK-MB (CK-2) 13.8 H 7.0 H (0.0-4.0) ng/mL CK-MB (CK-2) Rel Index 4.1 H (0-4) Troponin T 0.204 H* 0.215 H* (0.00-0.029) ng/mL
[2018-03-29] MEDS: LOPRESSOR PO SCH ×2 (16:34→23:16)
[2018-03-29] MEDS: IMDUR PO SCH (16:34)
[2018-03-29] MEDS: PEPCID IV SCH ×2 (16:34→23:14)
[2018-03-29 21:02] LABS: Hemoglobin 12.6 gm/dl (11.8-15.2)
[2018-03-29] MEDS: SODIUM CHLORIDE FLUSH SYRINGE 10 ML IV SCH (23:15)
[2018-03-30 05:52] LABS: Basophils # (Auto) 0.1 K/mm3 (0.0-0.1); Basophils % (Auto) 0.7 % (0.0-1.8); Eosinophils # (Auto) 0.8 K/mm3 (0.0-0.4); Eosinophils % (Auto) 10.9 % (0.0-4.3); Hematocrit 39.4 % (35.5-45.6); Hemoglobin 13.5 gm/dl (11.8-15.2); Lymphocytes # (Auto) 2.4 K/mm3 (1.2-5.4); Lymphocytes % (Auto) 31.1 % (13.4-35.0); Mean Corpuscular HGB Conc 34 % (32-34); Mean Corpuscular Hemoglobin 29 pg (28-32); Mean Corpuscular Volume 86 fl (84-94); Monocytes # (Auto) 0.8 K/mm3 (0.0-0.8); Monocytes % (Auto) 10.3 % (0.0-7.3); Platelet Count 351 K/mm3 (140-440); Red Cell Distribution Width 13.9 % (13.2-15.2)
[2018-03-30 05:59] LABS: INR 0.94 (0.87-1.13)
[2018-03-30 06:03] LABS: BUN/Creatinine Ratio 11; Blood Urea Nitrogen 10 mg/dL (9-20); Calcium 8.6 mg/dL (8.4-10.2); Hemolysis Index 1
[2018-03-30] MEDS: AGGRASTAT DRIP (12.5 MG/250 ML) 12,500 MCG/250 ML BAG IV SCH ×2 (06:46→08:54)
[2018-03-30] MEDS ORDERED: HEPARIN/NS 5000 UNIT/500ML(CATH LAB) 500 ML IR ONE (08:13)
[2018-03-30] MEDS ORDERED: NITROGLYCERIN SYRINGE 0 ML ONE (08:14)
[2018-03-30] MEDS ORDERED: VERSED ONE (08:14)
[2018-03-30] MEDS ORDERED: HEPARIN/NS 5000 UNIT/500ML(CATH LAB) 1,000 ML IR ONE (08:36)
[2018-03-30] MEDS: VERSED ONE ×3 (08:51→09:14)
[2018-03-30] MEDS: SUBLIMAZE ONE ×3 (08:52→09:14)
[2018-03-30] MEDS: XYLOCAINE 2% INFILTRATI ONE ×3 (08:52→09:12)
[2018-03-30] MEDS: CALAN ONE ×2 (08:53→09:12)
[2018-03-30] MEDS: HEPARIN 10,000 UNITS/10 ML ONE ×3 (08:53→09:23)
[2018-03-30] MEDS ORDERED: NACL 0.9% 500 ML 500 ML ONE (09:28)
[2018-03-30] MEDS ORDERED: BRILINTA ONE (09:49)
[2018-03-30] MEDS ORDERED: ALUM-MAG HYDROX-SIMETH 200-200-20MG/5ML ONE (09:49)
[2018-03-30] MEDS: IMDUR PO SCH (10:56)
[2018-03-30] MEDS: LOPRESSOR PO SCH ×2 (10:56→21:56)
[2018-03-30] MEDS: PEPCID IV SCH (10:57)
--- NOTE | 2018-03-30 12:31 | Progress Note ---
Assessment and Plan Assessment: Chest pain - currently resolved NSTEMI type I Abnormal EKG CAD s/p PCI of LAD LAD thrombus H/o occasional tobacco use - cessation encouraged Plan: S/p [facility] this AM showed near resolution of LAD thrombus, PCI of LAD performed. Initiate DAPT with ASA 81 and brilinta. Increase lipitor. Cont lopressor and Imdur. Will consider intervention of mid circ lesion as OP. Cont to monitor overnight with likely d/c home in AM. Echo reviewed - EF 55-60%, impaired relaxation, trace AR, trace MR, mild TR. Assessment and plan reviewed with pt and pt's family at bedside. The patient has been seen in conjunction with Dr. Navarro who agrees with the assessment and plan of care. Subjective Date of service: 03/30/18 Principal diagnosis: NSTEMI Interval history: pt for [facility] today. no current complaints. Objective Last Vital Signs Temp 98.5 F 03/30/18 04:34 Pulse 56 L 03/30/18 10:56 Resp 16 03/30/18 04:34 BP 121/85 03/30/18 10:56 Pulse Ox 99 03/30/18 04:34 - Physical Examination General: No Apparent Distress HEENT: Positive: PERRL, Normocephaly, Mucus Membranes Moist Neck: Positive: neck supple, trachea midline Cardiac: Positive: Reg Rate and Rhythm, S1/S2 Lungs: Positive: clear to auscultation Neuro: Positive: Grossly Intact, Cranial Nerve 2-12 Intact Abdomen: Positive: Soft. Negative: Tender Skin: Positive: Clear. Negative: Rash, Wound Musculoskeletal: No Fluid Collection, No Pain, Normal Range of Motion Extremities: Absent: edema - Labs and Meds Coagulation 03/30/18 Range/Units 05:11 PT 13.0 (12.2-14.9) Sec. INR 0.94 (0.87-1.13) CBC 03/29/18 03/30/18 Range/Units 20:44 05:11 WBC 7.8 (4.5-11.0) K/mm3 RBC 4.60 (3.65-5.03) M/mm3 Hgb 12.6 13.5 (11.8-15.2) gm/dl Hct 39.0 39.4 (35.5-45.6) % Plt Count 351 (140-440) K/mm3 Lymph # 2.4 (1.2-5.4) K/mm3 [place] # 0.8 (0.0-0.8) K/mm3 Eos # 0.8 H (0.0-0.4) K/mm3 Baso # 0.1 (0.0-0.1) K/mm3 Comprehensive Metabolic Panel 03/30/18 Range/Units 05:11 Sodium 140 (137-145) mmol/L Potassium 4.5 (3.6-5.0) mmol/L Chloride 102.9 (98-107) mmol/L Carbon Dioxide 29 (22-30) mmol/L BUN 10 (9-20) mg/dL Creatinine 0.9 (0.8-1.5) mg/dL Glucose 95 (75-100) mg/dL Calcium 8.6 (8.4-10.2) mg/dL - Imaging and Cardiology EKG: report reviewed, image reviewed Echo: pending - EKG Sinus rhythms and dysrhythmias: sinus rhythm Chamber hypertrophy or enlargement: left ventricular hypertro Repolarization changes or abnormalities: repolarization abn secondary to ventricular hypertrophy
--- NOTE | 2018-03-30 14:26 | Progress Note ---
Assessment and Plan Chest pain - currently resolved, likely from CAD NSTEMI type I with Abnormal EKG, s/p cardiac cath today and 03/29 LAD thrombus, s/p aggrastat gtt with PCI of LAD H/o occasional tobacco use - cessation encouraged Epigastric pain, CT abdomen w/o contrast ordered, showed no acute process - cont aspirin, statin, cardiology following - [facility] 03/29 showed LAD thrombus and mid circ lesion which may require intervention. - Initiated aggrastat gtt and planned for repeat coronary angiography - S/p [facility] this AM showed near resolution of LAD thrombus, PCI of LAD performed. - Placed on brilinta, off aggrastat gtt now . Cont lopressor and Imdur. Plan to intervention of mid circ lesion as OP. - Echo showed EF of 55-60% with impaired relaxation, - Plan for d/c in the am Physical exam: General appearance: no acute distress HEENT: Positive: PERRL, Normocephaly, Mucus Membranes Moist Neck: Positive: neck supple, trachea midline Cardiac: Positive: Reg Rate and Rhythm, S1/S2 Lungs: Positive: clear to auscultation Neuro: Positive: Grossly Intact, Cranial Nerve 2-12 Intact Abdomen: Positive: Soft. Negative: Tender Skin: Positive: Clear. Negative: Rash, Wound Musculoskeletal: No Fluid Collection, No Pain, Normal Range of Motion Extremities: Absent: edema Subjective Date of service: 03/30/18 Principal diagnosis: NSTEMI Interval history: Pt seen and examined s/p repeat cath today, family at bedside updated pt denies any chest pain now, No SOB Objective - Constitutional Vitals: Vital Signs - 12hr 03/30/18 03/30/18 04:34 10:56 Temperature 98.5 F Pulse Rate 60 56 L Respiratory 16 Rate Blood Pressure 107/64 121/85 O2 Sat by Pulse 99 Oximetry - Labs CBC & Chem 7: 03/30/18 05:11 03/30/18 05:11 Labs: Abnormal lab results 03/30/18 Range/Units 05:11 [place] % (Auto) 10.3 H (0.0-7.3) % Eos % (Auto) 10.9 H (0.0-4.3) % Eos # 0.8 H (0.0-0.4) K/mm3
[2018-03-30] MEDS: SODIUM CHLORIDE FLUSH SYRINGE 10 ML IV SCH (21:56)
[2018-03-30] MEDS ORDERED: BRILINTA PO SCH (22:00)
[2018-03-30] MEDS ORDERED: PEPCID PO SCH (22:00)
[2018-03-31 05:28] VITALS: BP 126/72
[2018-03-31 06:27] LABS: Hematocrit 37.1 % (35.5-45.6); Hemoglobin 12.6 gm/dl (11.8-15.2)
[2018-03-31] MEDS ORDERED: BABY ASPIRIN PO SCH (10:00)
--- NOTE | 2018-03-31 10:11 | Cardiac Catherization Report ---
CORONARY INTERVENTION OF THE MID LAD HISTORY OF PRESENT ILLNESS: The patient is a 52-year-old white gentleman who developed acute onset of chest pain, presented to the Emergency Room, was admitted to CCU and was noted to have elevated cardiac enzymes, suggestive of non-STEMI. Hence, cardiac catheterization was performed on 03/29/2018. The patient did not have any previous cardiac history. Cardiac catheterization showed normal LV function along with a thrombotic mid LAD lesion with sluggish flow in the distal LAD. Circumflex artery also has a long mid circulation, which is a bifurcation lesion. RCA showed a 30% to proximal lesion and FFR was found to be normal. Because of large amount of thrombus, the patient was given Aggrastat overnight and brought back to the catheterization laboratory for intervention of the LAD, which was felt to be the culprit lesion. The patient was brought to the catheterization laboratory after obtaining informed consent. The patient and family are aware of the procedure and potential complications, and alternatives of therapy available. DESCRIPTION OF PROCEDURE: The patient was prepared in standard fashion. The right wrist area and forearm thoroughly cleansed with Betadine solution. Sterile drapes were applied. Local anesthesia was achieved using 2% Xylocaine. After sedation with IV Versed and fentanyl, the patient was given local anesthesia and a right radial artery puncture was made without difficulty. A 6-Macanese slender sheath was used. The patient was given IV heparin, total of 7000 units, then EBU 3.75 guiding catheter was advanced and engaged the left coronary artery. Angiogram showed a thrombus burden to be much less, still present and intravascular ultrasound was performed to size the vessel and to see any significant thrombus. No significant thrombus was noted on the intravascular ultrasound. Distal vessel size was found to be 3.5-4 mm and proximal vessel size was found to be 3.5-4 mm in size with mild disease throughout the vessel itself, luminal size was found to be 2-2.5 mm in size. Considering the above findings, initially 3.5 x 12 mm Xience Alpine stent was inserted in the high mid LAD. Subsequent angiogram showed moderate stenosis distal to the stent. A second 3.0 x 15 mm Xience Alpine stent was inserted up to 14 atmospheres for 40 seconds. Final angiogram showed a very good result and final intravascular ultrasound showed very good apposition of the stent throughout. Minimal lumen diameter was found to 3.5 to 4.0 mm in the proximal part. Considering good apposition and excellent angiographic result, wire and guiding catheter were removed. Good hemostasis was achieved with a radial band. It is to be noted final angiograms did not show any complications of dissection or perforation or embolization. The patient tolerated the procedure well throughout without any significant chest pain or EKG changes or hemodynamic changes. MARIILN 3 flow was noted pre and post-procedure. However, initially flow is slightly sluggish. The patient was sedated after evaluating for moderate sedation. The patient's sedation started at 9:12 a.m. and ended at 9:45 a.m. FINAL IMPRESSION: 1. Uncomplicated drug-eluting stent placement in the mid left anterior descending for non-STEMI with a thrombotic lesion with very good result. No complications noted. 2. The patient was on Aggrastat for the last 24 hours, it will be continued for 4 hours. The patient was given Brilinta 180 mg in the catheterization laboratory, will be continued on Brilinta for 1 year. He will be continued on aspirin. The patient will be continued on medical therapy and the patient does have bifurcation complex lesion, involving the circumflex artery. After appropriate medical therapy, we will consider intervening this significant circumflex lesion at a later date. The patient tolerated the procedure well. Findings were explained to the patient and family. [facility]# [id number] BRENNAN/ETHEL ANDERSON
--- NOTE | 2018-03-31 13:38 | Progress Note ---
Assessment and Plan Assessment: NSTEMI type I CAD s/p PCI of LAD LAD thrombus H/o occasional tobacco use - cessation encouraged Plan: Currently stable cardiac status. Pt may discharge home from cardiology standpoint. If chest pain recurs despite optimal medical therapy, will consider PCI of complex bifurcation circumflex lesion as OP. Follow up in our [place] office with Dr. Fajardo on 04/05/2018 @ 11:15AM. The patient has been seen in conjunction with Dr. Navarro who agrees with the assessment and plan of care. Subjective Date of service: 03/31/18 Principal diagnosis: NSTEMI Interval history: pt resting comfortably in bed, no current cardiac complaints. states he feels ready to discharge home. Objective Last Vital Signs Temp 98.5 F 03/31/18 03:56 Pulse 65 03/31/18 03:56 Resp 18 03/31/18 03:56 BP 126/72 03/31/18 03:56 Pulse Ox 96 03/31/18 03:56 - Physical Examination General: No Apparent Distress HEENT: Positive: PERRL, Normocephaly, Mucus Membranes Moist Neck: Positive: neck supple, trachea midline Cardiac: Positive: Reg Rate and Rhythm, S1/S2 Lungs: Positive: clear to auscultation Neuro: Positive: Grossly Intact, Cranial Nerve 2-12 Intact Abdomen: Positive: Soft. Negative: Tender Skin: Positive: Clear. Negative: Rash, Wound Musculoskeletal: No Fluid Collection, No Pain, Normal Range of Motion Extremities: Absent: edema - Labs and Meds CBC 03/31/18 Range/Units 05:33 Hgb 12.6 (11.8-15.2) gm/dl Hct 37.1 (35.5-45.6) % Plt Count 317 (140-440) K/mm3 - Imaging and Cardiology EKG: report reviewed, image reviewed Echo: report reviewed (EF 55-60%, impaired relaxation, trace AR, trace MR, mild MR) - Telemetry EKG Rhythm: Sinus Rhythm - EKG Sinus rhythms and dysrhythmias: sinus rhythm Chamber hypertrophy or enlargement: left ventricular hypertro Repolarization changes or abnormalities: repolarization abn secondary to ventricular hypertrophy
--- NOTE | 2018-03-31 14:29 | Discharge Summary ---
Providers - Providers Date of Admission: 03/27/18 18:45 Date of discharge: 03/31/18 Attending physician: FELIX DE LEÓN 03/28/18 07:42 Consult to Physician [CONS] Routine Comment: Consulting Provider: DEDRICK HAMILTON Physician Instructions: Reason For Exam: nstemi 03/29/18 13:05 Consult to Cardiac Rehabilitation [CONS] Routine Reason For Exam: Cardiac Rehab Evaluation Primary care physician: CARDIAC RN Hospitalization Condition: Fair Hospital course: Discharge diagnosis: Chest pain - currently resolved, likely from CAD NSTEMI type I with Abnormal EKG, s/p cardiac cath today and 03/29 LAD thrombus, s/p aggrastat gtt with PCI of LAD H/o occasional tobacco use - cessation encouraged Epigastric pain, CT abdomen w/o contrast ordered, showed no acute process - cont aspirin, statin, cardiology following - [facility] 03/29 showed LAD thrombus and mid circ lesion which may require intervention. - Initiated aggrastat gtt and planned for repeat coronary angiography - S/p [facility] this AM showed near resolution of LAD thrombus, PCI of LAD performed. - Placed on brilinta, off aggrastat gtt now . Cont lopressor and Imdur. Plan to intervention of mid circ lesion as OP. - Echo showed EF of 55-60% with impaired relaxation, Physical exam: General appearance: no acute distress HEENT: Positive: PERRL, Normocephaly, Mucus Membranes Moist Neck: Positive: neck supple, trachea midline Cardiac: Positive: Reg Rate and Rhythm, S1/S2 Lungs: Positive: clear to auscultation Neuro: Positive: Grossly Intact, Cranial Nerve 2-12 Intact Abdomen: Positive: Soft. Negative: Tender Skin: Positive: Clear. Negative: Rash, Wound Musculoskeletal: No Fluid Collection, No Pain, Normal Range of Motion Extremities: Absent: edema Disposition: DC-01 TO HOME OR SELFCARE Time spent for discharge: 32 minutes Core Measure Documentation - Palliative Care Palliative Care/ Comfort Measures: Not Applicable - Core Measures Any of the following diagnoses?: acute OR - Acute OR Discharge Requirements Aspirin at discharge: Yes LILIANA/ARB for LVSD if EF <40%: Yes Beta ana at discharge: Yes Statin for LDL = or >100 mg/dl on DC: Yes Exam - Constitutional Vitals: Temp Pulse Resp BP Pulse Ox 98.5 F 65 18 126/72 96 03/31/18 03:56 03/31/18 03:56 03/31/18 03:56 03/31/18 03:56 03/31/18 03:56 Plan Activity: advance as tolerated Weight Bearing Status: Non-Weight Bearing Diet: low fat, low salt Follow up with: LARS LUGO MD [Staff Physician] - 7 Days (Follow up in our [place] office with Dr. Fajardo on 04/05/2018 @ 11:15AM. ) PRIMARY CARE, [Primary Care Provider] - 3-5 Days Prescriptions: AtorvaSTATin [Lipitor] 80 mg PO QHS #30 tablet Aspirin [Aspirin BABY CHEW TAB] 81 mg PO QDAY #30 tab.chew ISOSORBIDE MONOnitrate [Imdur ER] 30 mg PO QDAY #30 tablet Lisinopril [Zestril TAB] 2.5 mg PO QDAY #30 tab Metoprolol [Lopressor TAB] 12.5 mg PO BID #60 tablet Ticagrelor [Brilinta] 90 mg PO BID #60 tablet
== END 2018-03-31 16:15 | disposition home or self-care (01) | DRG 247 ==
LOC: ED 14:46 → 4A 18:45
PROVIDERS: ADMIT Internal Medicine; ATTEND Internal Medicine
PROC: 4A023N7 Measurement of Cardiac Sampling and Pressure, Left Heart, Percutaneous Approach (ICD-10-PCS; 2018-03-29)
PROC: B2111ZZ Fluoroscopy of Multiple Coronary Arteries using Low Osmolar Contrast (ICD-10-PCS; 2018-03-29)
PROC: 027035Z Dilation of Coronary Artery, One Artery with Two Drug-eluting Intraluminal Devices, Percutaneous Approach (ICD-10-PCS; principal; 2018-03-30)
DX: I21.4 Non-ST elevation (NSTEMI) myocardial infarction (principal); Z71.6 Tobacco abuse counseling; Z87.442 Personal history of urinary calculi; F17.210 Nicotine dependence, cigarettes, uncomplicated; I25.10 Atherosclerotic heart disease of native coronary artery without angina pectoris
CPT/HCPCS: 36415; 71045; 74176; 80048; 80053; 80061; 82550; 82553; 82962; 83036; 84484; 85014; 85018; 85025; 85027; 85049; 85347; 85610; 85730; 92928; 92978; 93005; 93010; 93306; 93458; 93571; 94760; 99285; 99406; A9270-GY; C1753; C1769; C1874; C1887; C1894; C9600; J0153; J1644; J1650; J2250; J2270; J3010; J3246; J7030; J7040; Q9967

== ENCOUNTER 2018-04-02 00:20 | Emergency (ER) | payer SELFPAY ==
[2018-04-02] MEDS ORDERED: NORCO 10/325 PO ONE (02:53)
[2018-04-02] MEDS ORDERED: ZOFRAN ODT PO ONE (02:53)
[2018-04-02 03:41] LABS: Basophils % (Auto) 0.5 % (0.0-1.8); Eosinophils # (Auto) 0.6 K/mm3 (0.0-0.4); Eosinophils % (Auto) 7.5 % (0.0-4.3); Hemoglobin 13.2 gm/dl (11.8-15.2); Lymphocytes # (Auto) 1.9 K/mm3 (1.2-5.4); Lymphocytes % (Auto) 22.4 % (13.4-35.0); Mean Corpuscular HGB Conc 35 % (32-34); Mean Corpuscular Hemoglobin 30 pg (28-32); Mean Corpuscular Volume 85 fl (84-94); Monocytes % (Auto) 11.3 % (0.0-7.3); Platelet Count 371 K/mm3 (140-440); Red Blood Count 4.46 M/mm3 (3.65-5.03); Red Cell Distribution Width 13.3 % (13.2-15.2)
[2018-04-02 03:44] LABS: BUN/Creatinine Ratio 20; Blood Urea Nitrogen 16 mg/dL (9-20); Calcium 9.1 mg/dL (8.4-10.2); Hemolysis Index 1
[2018-04-02 03:55] LABS: INR 0.9 (0.87-1.13)
--- NOTE | 2018-04-02 04:24 | Emergency Department Report ---
ED General Adult HPI - General Chief complaint: Headache Stated complaint: HEAD PAIN SOB Time Seen by Provider: 04/02/18 02:46 Source: patient, EMS Mode of arrival: Ambulatory Limitations: No Limitations - History of Present Illness Initial comments: 54-year-old man, placed 3 days status post coronary catheterization with stent placement for acute chest pain, returns with 2 day history of generalized headache of sudden onset, as well as shortness of breath with difficulty laying down. He is not having fever, but he felt somewhat warm, but has not had any sweats, he has no cough or congestion, and is more comfortable when he sitting up. He has no focal neurologic symptoms, no abdominal pain, no nausea or vomiting. -: Sudden, days(s) Location: head Radiation: non-radiation Severity scale (0 -10): 9 Quality: aching, other (pressure-like) Consistency: constant Improves with: none Worsens with: none Associated Symptoms: shortness of breath. denies: chest pain, syncope Treatments Prior to Arrival: none - Related Data Previous Rx's Medication Instructions Recorded Last Taken Type Aspirin [Aspirin BABY CHEW TAB] 81 mg PO QDAY #30 tab.chew 03/31/18 Unknown Rx AtorvaSTATin [Lipitor] 80 mg PO QHS #30 tablet 03/31/18 Unknown Rx ISOSORBIDE MONOnitrate [Imdur ER] 30 mg PO QDAY #30 tablet 03/31/18 Unknown Rx Lisinopril [Zestril TAB] 2.5 mg PO QDAY #30 tab 03/31/18 Unknown Rx Metoprolol [Lopressor TAB] 12.5 mg PO BID #60 tablet 03/31/18 Unknown Rx Ticagrelor [Brilinta] 90 mg PO BID #60 tablet 03/31/18 Unknown Rx Allergies Allergy/AdvReac Type Severity Reaction Status Date / Time No Known Allergies Allergy Verified 08/16/15 13:26 ED Review of Systems ROS: Stated complaint: HEAD PAIN SOB Other details as noted in HPI Constitutional: malaise. denies: chills, diaphoresis, fever, weakness Eyes: denies: eye pain, eye discharge, vision change ENT: denies: ear pain, throat pain Respiratory: orthopnea, shortness of breath, SOB at rest Cardiovascular: denies: chest pain, palpitations Endocrine: no symptoms reported Gastrointestinal: denies: abdominal pain, nausea, diarrhea Musculoskeletal: denies: back pain, joint swelling, arthralgia Skin: denies: rash, lesions Neurological: denies: headache, weakness, paresthesias Psychiatric: denies: anxiety, depression Hematological/Lymphatic: denies: easy bleeding, easy bruising ED Past Medical Hx - Past Medical History Previous Medical History?: Yes Hx Hypertension: Yes Hx Congestive Heart Failure: No Hx Diabetes: No Hx Renal Disease: No Hx Kidney Stones: Yes Hx Asthma: No Hx COPD: No - Surgical History Past Surgical History?: Yes Additional Surgical History: 2 stents - Social History Smoking Status: Former Smoker Substance Use Type: None - Medications Home Medications: Home Medications Medication Instructions Recorded Confirmed Last Taken Type Aspirin [Aspirin BABY CHEW TAB] 81 mg PO QDAY #30 tab.chew 03/31/18 Unknown Rx AtorvaSTATin [Lipitor] 80 mg PO QHS #30 tablet 03/31/18 Unknown Rx ISOSORBIDE MONOnitrate [Imdur ER] 30 mg PO QDAY #30 tablet 03/31/18 Unknown Rx Lisinopril [Zestril TAB] 2.5 mg PO QDAY #30 tab 03/31/18 Unknown Rx Metoprolol [Lopressor TAB] 12.5 mg PO BID #60 tablet 03/31/18 Unknown Rx Ticagrelor [Brilinta] 90 mg PO BID #60 tablet 03/31/18 Unknown Rx ED Physical Exam - General Limitations: No Limitations General appearance: alert, in no apparent distress - Head Head exam: Present: atraumatic, normocephalic - Eye Eye exam: Present: PERRL, EOMI - ENT ENT exam: Present: normal exam - Neck Neck exam: Present: normal inspection - Respiratory Respiratory exam: Present: normal lung sounds bilaterally (thank posterior crackles, clear with deep breathing), rales. Absent: wheezes, rhonchi, chest wall tenderness, accessory muscle use - Cardiovascular Cardiovascular Exam: Present: regular rate - GI/Abdominal GI/Abdominal exam: Present: soft. Absent: tenderness, guarding, rebound - Rectal Rectal exam: Present: deferred - Extremities Exam Extremities exam: Present: normal inspection. Absent: tenderness, pedal edema - Back Exam Back exam: Present: normal inspection. Absent: CVA tenderness (R), CVA tenderness (L) - Neurological Exam Neurological exam: Present: alert, oriented X3 - Psychiatric Psychiatric exam: Present: normal affect, normal mood ED Course Vital Signs 04/02/18 04/02/18 04/02/18 00:36 01:00 02:00 Temperature 98.2 F Pulse Rate 65 58 L 65 Respiratory 19 18 13 Rate Blood Pressure 128/78 114/71 124/81 Blood Pressure 128/78 [Left] O2 Sat by Pulse 97 98 99 Oximetry 04/02/18 04/02/18 04/02/18 03:00 04:01 05:00 Temperature Pulse Rate 60 63 Respiratory 14 18 Rate Blood Pressure 119/78 116/77 105/52 Blood Pressure [Left] O2 Sat by Pulse 99 98 99 Oximetry 04/02/18 06:00 Temperature Pulse Rate 57 L Respiratory 13 Rate Blood Pressure 121/71 Blood Pressure [Left] O2 Sat by Pulse 100 Oximetry - Reevaluation(s) Reevaluation #1: 04/02/18 06:20 Patient is resting comfortable, vital signs are stable, having no acute distress at this time, feeling better and more reassured with examination and several results. Brief focused [id number] cardiac examination shows normal function of 4 chambers of heart, with no signs of pericardial effusion, and certainly not. Results were discussed with patient, with normal troponin level, no signs of myocardial infarction, normal BNP, clear chest x-ray, and stable EKG. ED Medical Decision Making - Lab Data Result diagrams: 04/02/18 03:20 04/02/18 03:20 - EKG Data -: EKG Interpreted by Me (normal EKG, with no acute ST or T-wave changes, normal rate at 65 bpm. No ) EKG shows normal: sinus rhythm, axis, QRS complexes (normal QRS axis of 81, normal QRS complexes.), ST-T waves (normal ST segments, with no significant elevations or depressions. No ectopy) Rate: normal - EKG Data When compared to previous EKG there are: no significant change Interpretation: no acute changes, normal EKG - Radiology Data Radiology results: report reviewed Chest x-ray is normal with no acute cardiopulmonary findings, with clear lung marie bilaterally, normal heart size, no findings of pulmonary vascular congestion. - Medical Decision Making Patient has a stable physical examination, 3 days after having cardiac catheterization, with some sense of breathlessness, and difficulty laying down, but has been resting comfortably in a supine position during the course of his examination. While waiting results. Patient is much calmer, anxiety has subsided substantially, and I think he is greatly relieved at the results of the negative examination, with negative brief focused cardiac examination showing no signs of pericardial effusion or tamponade. Patient stable for discharge home, to continue his medications as before, should have close follow- up with his physician in the coming week, and instructed to contact them to let them know of his visit in the emergency department. - Differential Diagnosis heart failure, cardiac Amount, acute cornea syndrome, anxiety reaction Critical Care Time: No Critical care attestation.: If time is entered above; I have spent that time in minutes in the direct care of this critically ill patient, excluding procedure time. ED Disposition Clinical Impression: Status post cardiac catheterization Dyspnea, unspecified Qualifiers: Dyspnea type: shortness of breath Qualified Code(s): R06.02 - Shortness of breath; R06.00 - Dyspnea, unspecified; R06.01 - Orthopnea Disposition: TO HOME OR SELFCARE Is pt being admited?: No Does the pt Need Aspirin: No Condition: Stable Instructions: Dyspnea (ED) Additional Instructions: Evaluation today for your shortness of breath, and difficulty laying down, was negative. The most common causes are fluid buildup, if there was damage from the heart, or weakening of the heart muscle, but blood tests showed that there is no strain on the heart, and EKG is normal, and there is no findings of heart damage on blood test as well. Chest x-ray is normal, there is no signs of lung problem either. This is a good examination, we don't have a definite explanation for shortness of breath. This could be a reaction to the medication, but most people generally become acclimated to the medication over. Time, and we recommend that you continue the previous treatments recommended by her precinct police captain. Contact your precinct police captain's office on Tuesday morning, let them know that you were seen in the emergency department, and the results of your examination. Since you have an examination repeat scheduled in the coming week, they may want to continue that, but depending on how you're feeling, they may want to be seen earlier. We recommend that you rest and avoid significant exertion, but she may be up and around the house, doing regular nonexertional activity. Time if he feel that you getting much worse. Referrals: PRIMARY CARE, [Primary Care Provider] - 3-5 Days Time of Disposition: 06:29
[2018-04-02 06:14] VITALS: BP 121/71
--- NOTE | 2018-04-03 14:29 | XRay Report ---
FINAL REPORT PROCEDURE: XR CHEST ROUTINE 2V TECHNIQUE: PA and lateral chest radiographs were obtained. CPT 08549 HISTORY: dyspnea, recent cardiac cath and stents COMPARISON: No prior studies are available for comparison. FINDINGS: Heart: Normal. Mediastinum/Vessels: Normal. Lungs/Pleural space: Normal. Bony thorax: No acute osseous abnormality. Other: IMPRESSION: Normal examination.
--- NOTE | 2018-04-03 14:29 | Cat Scan Report ---
FINAL REPORT PROCEDURE: CT HEAD/BRAIN WO CON TECHNIQUE: Computerized tomography of the head was performed without contrast material. HISTORY: headache, recent cardiac procedure COMPARISON: No prior studies are available for comparison. FINDINGS: Skull and scalp: Normal. Paranasal sinuses: Normal. Ventricles and subarachnoid spaces: Normal. Cerebrum: No evidence of hemorrhage, acute infarction or mass . Cerebellum and brainstem: No evidence of hemorrhage, acute infarction or mass. Vasculature: Normal. Comments: None. IMPRESSION: Normal Examination
== END 2018-04-02 06:41 | disposition home or self-care (01) ==
LOC: ED 00:20
DX: R06.02 Shortness of breath (principal); Z95.818 Presence of other cardiac implants and grafts; I10 Essential (primary) hypertension
CPT/HCPCS: 36415; 70450; 71046; 80048; 83880; 85025; 85379; 85610; 93005; 93010; Q0162

== ENCOUNTER 2018-06-26 11:45 | Emergency (ER) | payer SELFPAY ==
[2018-06-26 12:39] LABS: Hematocrit 40.2 % (35.5-45.6); Hemoglobin 13.4 gm/dl (11.8-15.2); Mean Corpuscular HGB Conc 33 % (32-34); Mean Corpuscular Hemoglobin 29 pg (28-32); Mean Corpuscular Volume 87 fl (84-94); Platelet Count 346 K/mm3 (140-440); Red Blood Count 4.64 M/mm3 (3.65-5.03); Red Cell Distribution Width 13.6 % (13.2-15.2)
[2018-06-26 12:52] LABS: BUN/Creatinine Ratio 13; Blood Urea Nitrogen 13 mg/dL (9-20); Calcium 9.6 mg/dL (8.4-10.2); Hemolysis Index 3
[2018-06-26 14:17] LABS: Total Cells Counted 100
[2018-06-26 14:18] LABS: Platelet Estimate Cons; RBC Morphology Normal
--- NOTE | 2018-06-26 19:53 | Emergency Department Report ---
ED Chest Pain HPI - General Chief Complaint: Chest Pain Stated Complaint: CHEST PAIN Time Seen by Provider: 06/26/18 19:52 Source: patient Mode of arrival: Ambulatory Limitations: No Limitations - History of Present Illness Initial Comments: Patient is a 52-year-old male past medical history of MS status post 2 stents. Patient complains of left-sided chest pain since last night he is complaining of a 5 out of 10 pain it's a sharp kind of pain that is worse when he lies down nothing makes it better it does not radiate. He states that he is slightly short of breath. He denies any nausea or vomiting. He states that he's been off his medication for the last 2 months. He's been having some hot flashes. Patient only smokes about 2 or 3 cigarettes a month. Patient is not employed. - Related Data Previous Rx's Medication Instructions Recorded Last Taken Type Aspirin [Aspirin BABY CHEW TAB] 81 mg PO QDAY #30 tab.chew 06/26/18 Unknown Rx AtorvaSTATin [Lipitor] 80 mg PO QHS #30 tablet 06/26/18 Unknown Rx ISOSORBIDE MONOnitrate [Imdur ER] 30 mg PO QDAY #30 tablet 06/26/18 Unknown Rx Lisinopril [Zestril TAB] 2.5 mg PO QDAY #30 tab 06/26/18 Unknown Rx Metoprolol [Lopressor TAB] 12.5 mg PO BID #60 tablet 06/26/18 Unknown Rx Ticagrelor [Brilinta] 90 mg PO BID #60 tablet 06/26/18 Unknown Rx Allergies Allergy/AdvReac Type Severity Reaction Status Date / Time No Known Allergies Allergy Verified 08/16/15 13:26 Heart Score - HEART Score History: Slightly suspicious EKG: Normal Age: 45-65 Risk factors: > 3 risk factors or hx of atherosclerotic disease Troponin: < normal limit HEART Score: 3 ED Review of Systems ROS: Stated complaint: CHEST PAIN Other details as noted in HPI Constitutional: denies: chills, fever Eyes: denies: eye pain, eye discharge, vision change ENT: denies: ear pain, throat pain Respiratory: denies: cough, shortness of breath, wheezing Cardiovascular: chest pain. denies: palpitations Endocrine: no symptoms reported Gastrointestinal: denies: abdominal pain, nausea, diarrhea Genitourinary: denies: urgency, dysuria Musculoskeletal: denies: back pain, joint swelling, arthralgia Skin: denies: rash, lesions Neurological: denies: headache, weakness, paresthesias Psychiatric: denies: anxiety, depression Hematological/Lymphatic: denies: easy bleeding, easy bruising ED Past Medical Hx - Past Medical History Previous Medical History?: Yes Hx Hypertension: Yes Hx Heart Attack/AMI: Yes Hx Congestive Heart Failure: No Hx Diabetes: No Hx Renal Disease: No Hx Kidney Stones: Yes Hx Asthma: No Hx COPD: No - Surgical History Past Surgical History?: Yes Additional Surgical History: 2 stents - Social History Smoking Status: Current Some Day Smoker Substance Use Type: None - Medications Home Medications: Home Medications Medication Instructions Recorded Confirmed Last Taken Type Aspirin [Aspirin BABY CHEW TAB] 81 mg PO QDAY #30 tab.chew 06/26/18 Unknown Rx AtorvaSTATin [Lipitor] 80 mg PO QHS #30 tablet 06/26/18 Unknown Rx ISOSORBIDE MONOnitrate [Imdur ER] 30 mg PO QDAY #30 tablet 06/26/18 Unknown Rx Lisinopril [Zestril TAB] 2.5 mg PO QDAY #30 tab 06/26/18 Unknown Rx Metoprolol [Lopressor TAB] 12.5 mg PO BID #60 tablet 06/26/18 Unknown Rx Ticagrelor [Brilinta] 90 mg PO BID #60 tablet 06/26/18 Unknown Rx ED Physical Exam - General Limitations: No Limitations General appearance: alert, in no apparent distress - Head Head exam: Present: atraumatic, normocephalic - Eye Eye exam: Present: normal appearance - ENT ENT exam: Present: mucous membranes moist - Neck Neck exam: Present: normal inspection - Respiratory Respiratory exam: Present: normal lung sounds bilaterally. Absent: respiratory distress - Cardiovascular Cardiovascular Exam: Present: regular rate, normal rhythm. Absent: systolic murmur, diastolic murmur, rubs, gallop - GI/Abdominal GI/Abdominal exam: Present: soft, normal bowel sounds - Rectal Rectal exam: Present: deferred - Extremities Exam Extremities exam: Present: normal inspection - Back Exam Back exam: Present: normal inspection - Neurological Exam Neurological exam: Present: alert, oriented X3 - Psychiatric Psychiatric exam: Present: normal affect, normal mood - Skin Skin exam: Present: warm, dry, intact, normal color. Absent: rash ED Course Vital Signs 06/26/18 06/26/18 06/26/18 12:00 21:19 21:21 Temperature 98.7 F Pulse Rate 79 58 L Respiratory 18 14 14 Rate Blood Pressure 119/87 Blood Pressure 121/79 [Left] O2 Sat by Pulse 100 100 100 Oximetry CHRISTIANO score - Christiano Score Age > 65: (0) No Aspirin use within the Past 7 Days: (0) No 3 or more CAD Risk Factors: (1) Yes 2 or more Angina events in past 24 hrs: (1) Yes Known CAD with more than 50% Stenosis: (0) No Elevated Cardiac Markers: (0) No ST Deviation Greater than 0.5mm: (0) No CHRISTIANO Score: 2 ED Medical Decision Making - Lab Data Result diagrams: 06/26/18 12:25 06/26/18 12:25 Lab Results 06/26/18 06/26/18 06/26/18 Range/Units 12:25 12:25 16:41 WBC 4.6 (4.5-11.0) K/mm3 RBC 4.64 (3.65-5.03) M/mm3 Hgb 13.4 (11.8-15.2) gm/dl Hct 40.2 (35.5-45.6) % MCV 87 (84-94) fl MCH 29 (28-32) pg MCHC 33 (32-34) % RDW 13.6 (13.2-15.2) % Plt Count 346 (140-440) K/mm3 Add Manual Diff Complete Total Counted 100 Seg Neutrophils % Telephoto Installer Seg Neuts % (Manual) 35.0 L (40.0-70.0) % Band Neutrophils % 0 % Lymphocytes % (Manual) 43.0 H (13.4-35.0) % Reactive Lymphs % (Man) 2.0 % Monocytes % (Manual) 10.0 H (0.0-7.3) % Eosinophils % (Manual) 9.0 H (0.0-4.3) % Basophils % (Manual) 1.0 (0.0-1.8) % Metamyelocytes % 0 % Myelocytes % 0 % Promyelocytes % 0 % Blast Cells % 0 % Nucleated RBC % Not Reportable Seg Neutrophils # Man 1.6 L (1.8-7.7) K/mm3 Band Neutrophils # 0.0 K/mm3 Lymphocytes # (Manual) 2.0 (1.2-5.4) K/mm3 Abs React Lymphs (Man) 0.1 K/mm3 Monocytes # (Manual) 0.5 (0.0-0.8) K/mm3 Eosinophils # (Manual) 0.4 (0.0-0.4) K/mm3 Basophils # (Manual) 0.0 (0.0-0.1) K/mm3 Metamyelocytes # 0.0 K/mm3 Myelocytes # 0.0 K/mm3 Promyelocytes # 0.0 K/mm3 Blast Cells # 0.0 K/mm3 WBC Morphology Not Reportable Hypersegmented Neuts Not Reportable Hyposegmented Neuts Not Reportable Hypogranular Neuts Not Reportable Smudge Cells Not Reportable Toxic Granulation Not Reportable Toxic Vacuolation Not Reportable Dohle Bodies Not Reportable Pelger-Huet Anomaly Not Reportable Stephen Rods Not Reportable Platelet Estimate Cons Clumped Platelets Not Reportable Plt Clumps, EDTA Not Reportable Large Platelets Not Reportable Giant Platelets Not Reportable Platelet Satelliting Not Reportable Plt Morphology Comment Not Reportable RBC Morphology Normal Dimorphic RBCs Not Reportable Polychromasia Not Reportable Hypochromasia Not Reportable Poikilocytosis Not Reportable Anisocytosis Not Reportable Microcytosis Not Reportable Macrocytosis Not Reportable Spherocytes Not Reportable Pappenheimer Bodies Not Reportable Sickle Cells Not Reportable Target Cells Not Reportable Tear Drop Cells Not Reportable Ovalocytes Not Reportable Helmet Cells Not Reportable [place] Bodies Not Reportable [place] Rings Not Reportable [place] Cells Not Reportable Bite Cells Not Reportable Crenated Cell Not Reportable Elliptocytes Not Reportable Acanthocytes (Spur) Not Reportable Rouleaux Not Reportable Hemoglobin C Crystals Not Reportable Schistocytes Not Reportable Malaria parasites Not Reportable Lui Bodies Not Reportable Hem Pathologist Commnt No Sodium 136 L (137-145) mmol/L Potassium 4.0 (3.6-5.0) mmol/L Chloride 96.8 L (98-107) mmol/L Carbon Dioxide 28 (22-30) mmol/L Anion Gap 15 mmol/L BUN 13 (9-20) mg/dL Creatinine 1.0 (0.8-1.5) mg/dL Estimated GFR > 60 ml/min BUN/Creatinine Ratio 13 % Glucose 135 H (75-100) mg/dL Calcium 9.6 (8.4-10.2) mg/dL Troponin T < 0.010 < 0.010 (0.00-0.029) ng/mL NT-Pro-B Natriuret Pep (0-900) pg/mL 06/26/18 Range/Units 16:41 WBC (4.5-11.0) K/mm3 RBC (3.65-5.03) M/mm3 Hgb (11.8-15.2) gm/dl Hct (35.5-45.6) % MCV (84-94) fl MCH (28-32) pg MCHC (32-34) % RDW (13.2-15.2) % Plt Count (140-440) K/mm3 Add Manual Diff Total Counted Seg Neutrophils % Seg Neuts % (Manual) (40.0-70.0) % Band Neutrophils % % Lymphocytes % (Manual) (13.4-35.0) % Reactive Lymphs % (Man) % Monocytes % (Manual) (0.0-7.3) % Eosinophils % (Manual) (0.0-4.3) % Basophils % (Manual) (0.0-1.8) % Metamyelocytes % % Myelocytes % % Promyelocytes % % Blast Cells % % Nucleated RBC % Seg Neutrophils # Man (1.8-7.7) K/mm3 Band Neutrophils # K/mm3 Lymphocytes # (Manual) (1.2-5.4) K/mm3 Abs React Lymphs (Man) K/mm3 Monocytes # (Manual) (0.0-0.8) K/mm3 Eosinophils # (Manual) (0.0-0.4) K/mm3 Basophils # (Manual) (0.0-0.1) K/mm3 Metamyelocytes # K/mm3 Myelocytes # K/mm3 Promyelocytes # K/mm3 Blast Cells # K/mm3 WBC Morphology Hypersegmented Neuts Hyposegmented Neuts Hypogranular Neuts Smudge Cells Toxic Granulation Toxic Vacuolation Dohle Bodies Pelger-Huet Anomaly Stephen Rods Platelet Estimate Clumped Platelets Plt Clumps, EDTA Large Platelets Giant Platelets Platelet Satelliting Plt Morphology Comment RBC Morphology Dimorphic RBCs Polychromasia Hypochromasia Poikilocytosis Anisocytosis Microcytosis Macrocytosis Spherocytes Pappenheimer Bodies Sickle Cells Target Cells Tear Drop Cells Ovalocytes Helmet Cells [place] Bodies [place] Rings [place] Cells Bite Cells Crenated Cell Elliptocytes Acanthocytes (Spur) Rouleaux Hemoglobin C Crystals Schistocytes Malaria parasites Lui Bodies Hem Pathologist Commnt Sodium (137-145) mmol/L Potassium (3.6-5.0) mmol/L Chloride (98-107) mmol/L Carbon Dioxide (22-30) mmol/L Anion Gap mmol/L BUN (9-20) mg/dL Creatinine (0.8-1.5) mg/dL Estimated GFR ml/min BUN/Creatinine Ratio % Glucose (75-100) mg/dL Calcium (8.4-10.2) mg/dL Troponin T (0.00-0.029) ng/mL NT-Pro-B Natriuret Pep 11.07 (0-900) pg/mL - EKG Data -: EKG Interpreted by Me - EKG Data 06/26/18 21:58 EKG shows normal sinus rhythm and no ST segment elevation no T-wave inversion normal axis. - Radiology Data Radiology results: image reviewed Chest x-ray: Shows no acute cardiopulmonary disease - Medical Decision Making Cdx: Stable angina ddx: NSTEMI, PNA I will be get cbc, ekg, troponin, cxr Patient's blood work is unremarkable I will send patient home. I will give him a refill of his medications and I will have him follow-up with a primary care doctor. Patient is pain-free and his troponin since her negative therefore it is very unlikely he has any acute coronary syndrome especially since he recently had stents placed and last year. Discussed plan with patient additional verbal discharge instructions were given. Critical care attestation.: If time is entered above; I have spent that time in minutes in the direct care of this critically ill patient, excluding procedure time. ED Disposition Clinical Impression: Noncompliance with medication treatment due to underuse of medication Chest pain Qualifiers: Chest pain type: unspecified Qualified Code(s): R07.9 - Chest pain, unspecified Disposition: DC-01 TO HOME OR SELFCARE Is pt being admited?: No Does the pt Need Aspirin: No Condition: Stable Instructions: Chest Pain (ED) Prescriptions: AtorvaSTATin [Lipitor] 80 mg PO QHS #30 tablet Aspirin [Aspirin BABY CHEW TAB] 81 mg PO QDAY #30 tab.chew ISOSORBIDE MONOnitrate [Imdur ER] 30 mg PO QDAY #30 tablet Lisinopril [Zestril TAB] 2.5 mg PO QDAY #30 tab Metoprolol [Lopressor TAB] 12.5 mg PO BID #60 tablet Ticagrelor [Brilinta] 90 mg PO BID #60 tablet Referrals: RAFI GUNTER MD [Staff Physician] - 3-5 Days DEDRICK HAMILTON MD [Staff Physician] - 3-5 Days
[2018-06-26 21:21] VITALS: BP 121/79
--- NOTE | 2018-06-26 23:12 | XRay Report ---
FINAL REPORT EXAM: XR CHEST ROUTINE 2V HISTORY: chest pain and sob TECHNIQUE: 2 views of the chest. PRIORS: 04/01/2018 FINDINGS: The cardiomediastinal silhouette appears normal. The lungs are clear. The bones and soft tissues are unremarkable. IMPRESSION: No evidence of acute cardiopulmonary disease
== END 2018-06-26 22:19 | disposition home or self-care (01) ==
LOC: ED 11:45
DX: R07.89 Other chest pain (principal); I10 Essential (primary) hypertension; I25.2 Old myocardial infarction; F17.200 Nicotine dependence, unspecified, uncomplicated; Z91.14 Patient's other noncompliance with medication regimen; Z87.442 Personal history of urinary calculi
CPT/HCPCS: 36415; 71046; 80048; 83880; 84484; 85007; 85025; 93005; 93010; 99284

== ENCOUNTER 2021-04-14 12:47 | Observation (INO) | payer OTHER ==
--- NOTE | 2021-04-14 15:12 | Emergency Department Report ---
ED General Adult HPI - General Chief complaint: Neuro Symptoms/Deficit Stated complaint: MOUTH TURN TO THE SIDE PUI?: No Time Seen by Provider: 04/14/21 14:45 Source: patient Mode of arrival: Ambulatory Limitations: No Limitations - History of Present Illness Initial comments: 55-year-old male with a past medical history of coronary artery disease status post 2 stent placement in 2018 as well as hypertension, hyperlipidemia and medical non compliance presents to the ER today with complaints that his mouth was twisting to the right last night. He also reports some left-sided facial weakness and some numbness. He denies weakness in his extremities or any numbness or tingling in extremities. He denies any headache, dizziness, vision changes or speech changes. He initially denied that he was having chest pain but when I asked again he stated that he was having some mild left-sided chest discomfort which occurred once or twice over the past 2 days but he denied any associated shortness of breath. He states that he did develop a mild cold yesterday with associated post nasal drainage and mild cough but he denies any wheezing. He states that he is not currently on any medications neither is he on any antipsychotic medications. He states that he came in because he was concerned that his symptoms was related to his heart. 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 He is also not been taking any of his medications that was prescribed to him after he left the hospital. He is not currently on any anticoagulants or antiplatelet therapy. MD Complaint: Facial twisting -: Gradual ( yesterday ) Severity scale (0 -10): 0 - Related Data Previous Rx's Medication Instructions Recorded Last Taken Type Aspirin [Aspirin BABY CHEW TAB] 81 mg PO QDAY #30 tab.chew 06/26/18 Unknown Rx AtorvaSTATin [Lipitor] 80 mg PO QHS #30 tablet 06/26/18 Unknown Rx ISOSORBIDE MONOnitrate [Imdur ER] 30 mg PO QDAY #30 tablet 06/26/18 Unknown Rx Lisinopril [Zestril TAB] 2.5 mg PO QDAY #30 tab 06/26/18 Unknown Rx Metoprolol [Lopressor TAB] 12.5 mg PO BID #60 tablet 06/26/18 Unknown Rx Ticagrelor [Brilinta] 90 mg PO BID #60 tablet 06/26/18 Unknown Rx Allergies Allergy/AdvReac Type Severity Reaction Status Date / Time No Known Allergies Allergy Verified 08/16/15 13:26 ED Review of Systems ROS: Stated complaint: MOUTH TURN TO THE SIDE Other details as noted in HPI Comment: All other systems reviewed and negative Constitutional: denies: chills, fever ENT: denies: ear pain, throat pain, dental pain, hearing loss, epistaxis, congestion Respiratory: cough. denies: shortness of breath, SOB with exertion, SOB at rest, wheezing Cardiovascular: chest pain Gastrointestinal: denies: abdominal pain, nausea, vomiting, diarrhea, constipation, hematemesis, melena, hematochezia Genitourinary: denies: urgency, dysuria, frequency, hematuria, discharge, testicular pain, testicular mass Musculoskeletal: denies: back pain, joint swelling, arthralgia Skin: denies: rash, lesions, change in color, change in hair/nails, pruritus Neurological: weakness (Left face), numbness (Left face). denies: headache, paresthesias, confusion, abnormal gait, vertigo Psychiatric: denies: anxiety, depression, auditory hallucinations, visual hallucinations, homicidal thoughts Hematological/Lymphatic: denies: easy bleeding, easy bruising, swollen glands ED Past Medical Hx - Past Medical History Previous Medical History?: Yes Hx Hypertension: Yes Hx Heart Attack/AMI: Yes Hx Congestive Heart Failure: No Hx Diabetes: No Hx Renal Disease: No Hx Kidney Stones: Yes Hx Asthma: No Hx COPD: No - Surgical History Past Surgical History?: Yes Additional Surgical History: 2 stents - Social History Smoking Status: Current Some Day Smoker Substance Use Type: None - Medications Home Medications: Home Medications Medication Instructions Recorded Confirmed Last Taken Type Aspirin [Aspirin BABY CHEW TAB] 81 mg PO QDAY #30 tab.chew 06/26/18 Unknown Rx AtorvaSTATin [Lipitor] 80 mg PO QHS #30 tablet 06/26/18 Unknown Rx ISOSORBIDE MONOnitrate [Imdur ER] 30 mg PO QDAY #30 tablet 06/26/18 Unknown Rx Lisinopril [Zestril TAB] 2.5 mg PO QDAY #30 tab 06/26/18 Unknown Rx Metoprolol [Lopressor TAB] 12.5 mg PO BID #60 tablet 06/26/18 Unknown Rx Ticagrelor [Brilinta] 90 mg PO BID #60 tablet 06/26/18 Unknown Rx ED Physical Exam - General Limitations: No Limitations General appearance: alert, in no apparent distress - Head Head exam: Present: atraumatic, normocephalic, normal inspection, other - Eye Eye exam: Present: normal appearance, PERRL, EOMI. Absent: conjunctival injection Pupils: Present: normal accommodation - Neck Neck exam: Present: normal inspection, full ROM. Absent: meningismus - Respiratory Respiratory exam: Present: normal lung sounds bilaterally. Absent: respiratory distress - Cardiovascular Cardiovascular Exam: Present: regular rate, normal rhythm, normal heart sounds - GI/Abdominal GI/Abdominal exam: Present: soft. Absent: distended, tenderness, guarding, rebound - Extremities Exam Extremities exam: Present: normal inspection - Back Exam Back exam: Present: normal inspection - Neurological Exam Neurological exam: Present: alert, oriented X3, CN II-XII intact, normal gait - Expanded Neurological Exam Expanded Patient oriented to: Present: person, place, time Speech: Present: fluid speech Cranial nerves: EOM's Intact: Normal, Gag Reflex: Normal, Tongue Deviation: Normal, Facial Sensation: Normal, Facial Palsy without Forehead Movement: Abnormal Left (loss of wrinkling of left side of forehead. ptosis left eye lid; left side facial weakness noted ) Cerebellar function: Finger to Nose: Normal, Heel to Lenz: Normal, Romberg: Normal Upper motor neuron: Pronator Drift: Normal Sensory exam: Upper Extremity Light Touch: Normal, Lower Extremity Light Touch: Normal Motor strength exam: RUE: 5, LUE: 5, RLE: 5, LLE: 5 Best Eye Response ([place]): (4) open spontaneously Best Motor Response ([place]): (6) obeys commands Best Verbal Response ([place]): (5) oriented [place] Total: 15 - Psychiatric Psychiatric exam: Present: normal affect, normal mood - Skin Skin exam: Present: intact ED Course Vital Signs 04/14/21 13:44 Temperature 98.2 F Pulse Rate 75 Respiratory 18 Rate Blood Pressure 128/88 [Right] O2 Sat by Pulse 97 Oximetry ED Medical Decision Making - Lab Data Result diagrams: 04/14/21 15:32 04/14/21 15:32 - Radiology Data Radiology results: report reviewed Patient: YAYA AVILA MR#: [id number] : 1965 Acct:[id number] Age/Sex: 55 / M ADM Date: 04/14/21 Loc: ED Attending Dr: Ordering Physician: MEE DIANA Date of Service: 04/14/21 Procedure(s): CT head/brain wo con Accession Number(s): [id number] cc: MEE DIANA CT BRAIN: 04/14/2021 INDICATION / CLINICAL INFORMATION: left sided facial weakness. COMPARISON: CT brain 04/02/2018 FINDINGS: BRAIN/INTRACRANIAL STRUCTURES: Unenhanced CT images of the brain demonstrate no evidence of acute intracranial abnormality. Ventricles and sulci are normal in size and shape for a patient of this age. There is no evidence of acute ischemic injury, hemorrhage, or mass. There are no abnormal extra- axial fluid collections. EXTRACRANIAL STRUCTURES: Unremarkable. IMPRESSION: No acute abnormality. Negative unenhanced CT of the brain. No significant change when compared to 04/02/2018. All CT scans at this location are performed using dose reduction to ALARA by means of automated exposure control. Signer Name: Scooter Michel MD Signed: 04/14/2021 3:20 PM Workstation Name: [id number] Transcribed By: ABNER Dictated By: Scooter Mihcel MD Electronically Authenticated By: Scooter Michel MD Signed Date/Time: 04/14/21 1520 DD/ 1519 TD/TT: Patient: YAYA AVILA MR#: [id number] : 1965 Acct:[id number] Age/Sex: 55 / M ADM Date: 04/14/21 Loc: ED Attending Dr: Ordering Physician: MEE DIANA Date of Service: 04/14/21 Procedure(s): XR chest routine 2V Accession Number(s): [id number] cc: MEE DIANA Fluoro Time In Minutes: CHEST 2 VIEWS INDICATION: Chest Pain. COMPARISON: 06/26/2018 FINDINGS: SUPPORT DEVICES: None. HEART: Within normal limits. LUNGS/PLEURA: No acute air space or interstitial disease. No pneumothorax. ADDITIONAL FINDINGS: None. IMPRESSION: 1. No acute findings. Signer Name: Clayton Grimes MD Signed: 04/14/2021 3:46 PM Workstation Name: [id number] Transcribed By: SAM Dictated By: Clayton Grimes MD Electronically Authenticated By: Clayton Grimes MD Signed Date/Time: 04/14/211545 DD/ 45 TD/TT: - Medical Decision Making Case discussed with Dr. Pastrana who also saw and evaluated patient (see his note for details) and he agrees that patient symptoms could be related to bells palsy but given that patient is also having chest pain and has been noncompliant with follow-ups or his meds recommend doing a cardiac work-up and admitted to the hospital. He also recommend doing a neuro consult. Head CT negative. EKG shows no STEMI or any acute ischemic changes or significant arrhythmias. Labs pending. Reviewed heart cath from 2018 and patient had positive heart cath with lesions in LAD and mid circumflex artery. 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 Discussed case with Dr Conner, hospitalist. He has agreed to admit patient. Critical care attestation.: If time is entered above; I have spent that time in minutes in the direct care of this critically ill patient, excluding procedure time. ED Disposition Clinical Impression: Richardson's palsy Chest pain Qualifiers: Chest pain type: unspecified Qualified Code(s): R07.9 - Chest pain, unspecified Disposition: DC-09 OP ADMIT IP TO THIS HOSP Is pt being admited?: Yes Does the pt Need Aspirin: Yes Condition: Stable
--- NOTE | 2021-04-14 15:24 | Cat Scan Report ---
CT BRAIN: 04/14/2021 INDICATION / CLINICAL INFORMATION: left sided facial weakness. COMPARISON: CT brain 04/02/2018 FINDINGS: BRAIN/INTRACRANIAL STRUCTURES: Unenhanced CT images of the brain demonstrate no evidence of acute int racranial abnormality. Ventricles and sulci are normal in size and shape for a patient of this age. There is no evidence of acute ischemic injury, hemorrhage, or mass. There are no abnormal extra-axial fluid collections. EXTRACRANIAL STRUCTURES: Unremarkable. IMPRESSION: No acute abnormality. Negative unenhanced CT of the brain. No significant change when compared to 04/02/2018. All CT scans at this location are performed using dose reduction to ALARA by means of automated expos ure control. Signer Name: Scooter Michel MD Signed: 04/14/2021 3:20 PM Workstation Name: [id number]
--- NOTE | 2021-04-14 15:39 | Event Note ---
Date of service: 04/14/21 Face to Face: 55-year-old gentleman with ischemic heart disease. Past medical history shows known history of coronary artery disease, with stents, history of NSTEMI, noncompliant with antiplatelet therapy. May also have a history of hypertension, and tobacco use. Presents to the ER with 2 complaints. First complaint is sensation of left-sided weakness, and drooping. Last known well time more than 24 hours prior to arrival. On examination, there is left-sided facial droop, involving the left forehead. 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 The patient endorses recent cold and cough symptoms. He denies loss of taste and smell. His NIH score is 2. Not a TPA candidate given that symptoms present for greater than 4.5 hours. Given NIH score of less than 6, symptomatology present for greater than 24 hours, does not require emergent endovascular imaging, or CT angiographic imaging. Aspirin, plus minus steroids / Lab Results 04/14/21 04/14/21 04/14/21 Range/Units 15:32 15:32 15:32 WBC 5.1 (4.5-11.0) K/mm3 RBC 4.48 (3.65-5.03) M/mm3 Hgb 13.5 (11.8-15.2) gm/dl Hct 39.7 (35.5-45.6) % MCV 88 (84-94) fl MCH 30 (28-32) pg MCHC 34 (32-34) % RDW 13.6 (13.2-15.2) % Plt Count 337 (140-440) K/mm3 Lymph % (Auto) 35.1 H (13.4-35.0) % [place] % (Auto) 10.7 H (0.0-7.3) % Eos % (Auto) 2.6 (0.0-4.3) % Baso % (Auto) 0.8 (0.0-1.8) % Lymph # (Auto) 1.8 (1.2-5.4) K/mm3 [place] # (Auto) 0.5 (0.0-0.8) K/mm3 Eos # (Auto) 0.1 (0.0-0.4) K/mm3 Baso # (Auto) 0.0 (0.0-0.1) K/mm3 Seg Neutrophils % 50.8 (40.0-70.0) % Seg Neutrophils # 2.6 (1.8-7.7) K/mm3 PT 13.1 (12.2-14.9) Sec. INR 0.93 (0.87-1.13) APTT 32.1 (24.2-36.6) Sec. Sodium 139 (137-145) mmol/L Potassium 4.0 (3.6-5.0) mmol/L Chloride 102.9 (98-107) mmol/L Carbon Dioxide 28 (22-30) mmol/L Anion Gap 12 mmol/L BUN 13 (9-20) mg/dL Creatinine 0.8 (0.8-1.3) mg/dL Estimated GFR > 60 ml/min BUN/Creatinine Ratio 16 % Glucose 98 (75-100) mg/dL Calcium 9.5 (8.4-10.2) mg/dL Magnesium (1.7-2.3) mg/dL Total Bilirubin 0.50 (0.1-1.2) mg/dL AST 19 (5-40) units/L ALT 20 (7-56) units/L Alkaline Phosphatase 75 (35-129) units/L Total Creatine Kinase (55-170) units/L Troponin T < 0.010 (0.00-0.029) ng/mL Total Protein 7.3 (6.3-8.2) g/dL Albumin 4.6 (3.9-5) g/dL Albumin/Globulin Ratio 1.7 % Lipase 55 (13-60) units/L // Range/Units 15:39 WBC (4.5-11.0) K/mm3 RBC (3.65-5.03) M/mm3 Hgb (11.8-15.2) gm/dl Hct (35.5-45.6) % MCV (84-94) fl MCH (28-32) pg MCHC (32-34) % RDW (13.2-15.2) % Plt Count (140-440) K/mm3 Lymph % (Auto) (13.4-35.0) % [place] % (Auto) (0.0-7.3) % Eos % (Auto) (0.0-4.3) % Baso % (Auto) (0.0-1.8) % Lymph # (Auto) (1.2-5.4) K/mm3 [place] # (Auto) (0.0-0.8) K/mm3 Eos # (Auto) (0.0-0.4) K/mm3 Baso # (Auto) (0.0-0.1) K/mm3 Seg Neutrophils % (40.0-70.0) % Seg Neutrophils # (1.8-7.7) K/mm3 PT (12.2-14.9) Sec. INR (0.87-1.13) APTT (24.2-36.6) Sec. Sodium (137-145) mmol/L Potassium (3.6-5.0) mmol/L Chloride (98-107) mmol/L Carbon Dioxide (22-30) mmol/L Anion Gap mmol/L BUN (9-20) mg/dL Creatinine (0.8-1.3) mg/dL Estimated GFR ml/min BUN/Creatinine Ratio % Glucose (75-100) mg/dL Calcium (8.4-10.2) mg/dL Magnesium 1.90 (1.7-2.3) mg/dL Total Bilirubin (0.1-1.2) mg/dL AST (5-40) units/L ALT (7-56) units/L Alkaline Phosphatase (35-129) units/L Total Creatine Kinase 128 (55-170) units/L Troponin T (0.00-0.029) ng/mL Total Protein (6.3-8.2) g/dL Albumin (3.9-5) g/dL Albumin/Globulin Ratio % Lipase (13-60) units/L antivirals. Obtain level 3 teleneurology consultation. Ocular protection. Second complaint is chest pain. Central and left-sided. No vomiting, no diaphoresis, denies DVT and pulmonary embolism risk factors. EKG today shows a sinus rhythm, rate 66 bpm, with normal axis, left ventricular hypertrophy, motion artifact, not a STEMI. Patient denies DVT and pulmonary embolism risk factors. Noncontrast CT scan of the brain negative for acute findings. X-ray the chest to my interpretation negative for acute findings. I suspect that patient has experienced a Richardson's palsy, and his chest pain seems to be atypical. However, given vascular risk factors, cardiac catheterization in 2018, heart score of 4, we will obtain neurology consultation, and ideally admit this patient to the medical service for cardiac risk ratification. Have discussed this plan of care with the physician associate and the patient, both of whom have articulated understanding. Vital Signs 04/14/21 13:44 Temperature 98.2 F Pulse Rate 75 Respiratory 18 Rate Blood Pressure 128/88 [Right] O2 Sat by Pulse 97 Oximetry Heart Score - HEART Score History: Slightly suspicious EKG: Non-specific Age: 45-65 Risk factors: > 3 risk factors or hx of atherosclerotic disease Troponin: < normal limit HEART Score: 4 - EKG Read Time Time EKG Completed: 14:08 EKG Read Time: 14:14 - Critical Actions Critical Actions: 4-6 pts:12-16.6% risk of adverse cardiac event. Should be admitted - Assessment Assessment Interval: Baseline - Level of Consciousness 1a. Level of Consciousness: alert/keenly responsive - LOC Questions 1b. LOC Questions: answers both correctly - LOC Command 1c. LOC Commands: performs tasks correctly - Best Gaze 2. Best Gaze: normal - Visual 3. Visual: no visual loss - Facial Palsy 4. Facial Palsy: partial paralysis (LEFT FACE) - Motor Arm 5a. Motor Arm Left: no drift 5b. Motor Arm Right: no drift - Motor Leg 6a. Motor Leg Left: no drift 6b. Motor Leg Right: no drift - Limb Ataxia 7. Limb Ataxia: absent - Sensory 8. Sensory: normal - Best Language 9. Best Language: no aphasia - Dysarthria 10. Dysarthria: normal - Extinction and Inattention 11. Extinction/Inattention: no abnormality - Scoring Total Score: 2 Stroke Severity: Minor Stroke
[2021-04-14] MEDS ORDERED: ASPIRIN 325 MG TAB PO ONE (15:49)
--- NOTE | 2021-04-14 15:51 | XRay Report ---
CHEST 2 VIEWS INDICATION: Chest Pain. COMPARISON: 06/26/2018 FINDINGS: SUPPORT DEVICES: None. HEART: Within normal limits. LUNGS/PLEURA: No acute air space or interstitial disease. No pneumothorax. ADDITIONAL FINDINGS: None. IMPRESSION: 1. No acute findings. Signer Name: Clayton Grimes MD Signed: 04/14/2021 3:46 PM Workstation Name: [id number]
--- NOTE | 2021-04-14 15:59 | Consultation ---
History of Present Illness History of present illness: [place] [facility] Consult Note # Demographics Consult Type: General Neurology Patient Location: Emergency Room First Name: Cecil Hall Last Name: Guilherme Date of : 1965 Age: 55 Gender: Male Time of Initial Page ( Time): 04/14/2021, 15:49 Time of Return Call ( Time): 04/14/2021, 15:50 # HPI History: 55 year-old male presents with left facial weakness that began last night. # Scores Time of exam and NIHSS ( Time): 04/14/2021, 15:54 Level of Consciousness 1a: [0] = Alert; keenly responsive LOC Questions 1b: [0] = Answers both questions correctly LOC Commands 1c: [0] = Performs both tasks correctly Best Gaze 2: [0] = Normal Visual 3: [0] = No visual loss Facial Palsy 4: [2] = Partial paralysis Motor Arm Left 5a: [0] = No drift Motor Arm Right 5b: [0] = No drift Motor Leg Left 6a: [0] = No drift Motor Leg Right 6b: [0] = No drift Limb Ataxia 7: [0] = Absent Sensory 8: [0] = Normal Best Language 9: [0] = No aphasia Dysarthria 10: [0] = Normal Extinction and Inattention 11: [0] = No abnormality NIHSS Total: 2 # Exam Vitals: vital signs reviewed # PMH-FH-SH Past Medical History: hyperlipidemia hypertension # Data Head CT: no bleed per radiologist read # Assessment Impression: Left facial nerve (Richardson's) palsy # Plan Medication: Oral steroids and antivirals for 1 week. Other: I have discussed my recommendations with the referring provider Disposition: discharge Medications and Allergies Allergies Allergy/AdvReac Type Severity Reaction Status Date / Time No Known Allergies Allergy Verified 08/16/15 13:26 Home Medications Medication Instructions Recorded Confirmed Last Taken Type Aspirin [Aspirin BABY CHEW TAB] 81 mg PO QDAY #30 tab.chew 06/26/18 Unknown Rx AtorvaSTATin [Lipitor] 80 mg PO QHS #30 tablet 06/26/18 Unknown Rx ISOSORBIDE MONOnitrate [Imdur ER] 30 mg PO QDAY #30 tablet 06/26/18 Unknown Rx Lisinopril [Zestril TAB] 2.5 mg PO QDAY #30 tab 06/26/18 Unknown Rx Metoprolol [Lopressor TAB] 12.5 mg PO BID #60 tablet 06/26/18 Unknown Rx Ticagrelor [Brilinta] 90 mg PO BID #60 tablet 06/26/18 Unknown Rx Physical Examination - Vital Signs Vital Signs: Vital Signs Temp Pulse Resp BP Pulse Ox 98.2 F 75 18 128/88 97 04/14/21 13:44 04/14/21 13:44 04/14/21 13:44 04/14/21 13:44 04/14/21 13:44
[2021-04-14 16:42] LABS: Basophils % (Auto) 0.8 % (0.0-1.8); Eosinophils # (Auto) 0.1 K/mm3 (0.0-0.4); Eosinophils % (Auto) 2.6 % (0.0-4.3); Hematocrit 39.7 % (35.5-45.6); Hemoglobin 13.5 gm/dl (11.8-15.2); Lymphocytes # (Auto) 1.8 K/mm3 (1.2-5.4); Lymphocytes % (Auto) 35.1 % (13.4-35.0); Mean Corpuscular HGB Conc 34 % (32-34); Mean Corpuscular Volume 88 fl (84-94); Monocytes # (Auto) 0.5 K/mm3 (0.0-0.8); Monocytes % (Auto) 10.7 % (0.0-7.3); Platelet Count 337 K/mm3 (140-440); Red Blood Count 4.48 M/mm3 (3.65-5.03); Red Cell Distribution Width 13.6 % (13.2-15.2)
[2021-04-14 16:45] LABS: INR 0.93 (0.87-1.13)
[2021-04-14 16:46] LABS: Partial Thromboplastin Time 32.1 Sec. (24.2-36.6)
[2021-04-14 17:09] LABS: Alanine Aminotransferase 20 units/L (7-56); Albumin 4.6 g/dL (3.9-5); BUN/Creatinine Ratio 16; Blood Urea Nitrogen 13 mg/dL (9-20); Calcium 9.5 mg/dL (8.4-10.2); Hemolysis Index 1
[2021-04-14] MEDS ORDERED: CETIRIZINE 10 MG TAB PO STA (21:24)
[2021-04-14] MEDS ORDERED: dexAMETHasone 4 MG/ML VIAL IV ONE (22:58)
--- NOTE | 2021-04-14 23:22 | Event Note ---
Date: 04/14/21 Patient has right facial weakness for the last 2 days Food gets stuck in the right cheek buccal mucosa Patient has a history of hypertension coronary artery disease and has been noncompliant. No chest pain. Discharge diagnosis Right Richardson's palsy Hypertension Coronary artery disease Patient being discharged on tapering dose of prednisone 40 mg once a day for 3 days then 30 mg once a day for 3 days then 20 mg once a day for 3 days then 10 mg once a day for 3 days Lipitor 20 mg once a day il metoprolol 25 mg twice a day and isosorbide mononitrate 30 mg once a day. Patient was advised to follow-up with [facility] or PCP Talked with his mother and his daughter.
[2021-04-15 04:08] VITALS: BP 137/93
--- NOTE | 2021-04-17 19:08 | Electrocardiograph Report ---
[facility] Test Date: 2021-04-14 Test Time: 14:08:24 Pat Name: YAYA AVILA Department: Room: [place] [address] Gender: M Systems Security Consultant: TEQUILA : 1965 Requested By: MEE DIANA Order Number: [id number] Reading MD: Evans Navarro Measurements Intervals [place] Rate: 66 P: 59 NC: 131 QRS: 74 QRSD: 100 T: 24 QT: 402 QTc: 421 Interpretive Statements Sinus rhythm No previous ECG available for comparison Electronically Signed On 04-17-2021 19:08:18 EDT by Evans Navarro
== END 2021-04-15 00:20 | disposition home or self-care (01) ==
LOC: ED 12:47 → 4A 17:15
PROVIDERS: ADMIT Internal Medicine; ATTEND Internal Medicine
DX: G51.0 Bell's palsy (principal); R07.89 Other chest pain; I10 Essential (primary) hypertension; E78.5 Hyperlipidemia, unspecified; I25.10 Atherosclerotic heart disease of native coronary artery without angina pectoris; I21.9 Acute myocardial infarction, unspecified; F17.210 Nicotine dependence, cigarettes, uncomplicated; Z95.1 Presence of aortocoronary bypass graft; Z91.19 Patient's noncompliance with other medical treatment and regimen; Z79.82 Long term (current) use of aspirin; Z87.442 Personal history of urinary calculi
CPT/HCPCS: 36415; 70450; 71046; 80053; 82550; 83690; 83735; 84484; 85025; 85610; 85730; 93005; 96374; 99285; G0378; J1100

== ENCOUNTER 2021-04-18 22:17 | Emergency (ER) | payer OTHER ==
[2021-04-19 00:16] VITALS: BP 132/79
--- NOTE | 2021-04-19 00:45 | Emergency Department Report ---
ED General Adult HPI - General Chief complaint: Headache Stated complaint: HEADACHE Source: patient Mode of arrival: Ambulatory Limitations: No Limitations - History of Present Illness Initial comments: Patient is a 55-year-old -[place] male with a history of hypertension and hyperlipidemia and was recently diagnosed with Richardson's palsy presents to the ED with complaint of acute onset persistent headache despite taking [id number] medications for the last 24 hours. Patient states that he is currently taking prednisone 10 mg Dosepak for his recently diagnosed Richardson's palsy 3 days ago. Patient states that the headache has been persistent and mainly on the right frontal scalp. Patient denies dizziness, syncope, chest pain, shortness of breath, palpitations, fever, chills, cough, nasal and sinus congestion, neck pain, abdominal pain or nausea and vomiting. MD Complaint: Headache; Richardson's palsy -: Sudden, hour(s) (24) Location: head Radiation: non-radiation Severity scale (0 -10): 4 Quality: aching, sharp Consistency: constant Improves with: none Associated Symptoms: denies other symptoms, headaches. denies: confusion, chest pain, cough, diaphoresis, fever/chills, loss of appetite, malaise, nausea/vomiting, rash, seizure, shortness of breath, syncope, weakness Treatments Prior to Arrival: NSAID - Related Data Previous Rx's Medication Instructions Recorded Last Taken Type Aspirin [Aspirin BABY CHEW TAB] 81 mg PO QDAY #30 tab.chew 06/26/18 Unknown Rx AtorvaSTATin [Lipitor] 80 mg PO QHS #30 tablet 06/26/18 Unknown Rx ISOSORBIDE MONOnitrate [Imdur ER] 30 mg PO QDAY #30 tablet 06/26/18 Unknown Rx Lisinopril [Zestril TAB] 2.5 mg PO QDAY #30 tab 06/26/18 Unknown Rx Metoprolol [Lopressor TAB] 12.5 mg PO BID #60 tablet 06/26/18 Unknown Rx Ticagrelor [Brilinta] 90 mg PO BID #60 tablet 06/26/18 Unknown Rx Acyclovir 400 mg PO Q8H #30 tablet 04/19/21 Unknown Rx Butalb/Acetamin/Caff 50-325-40 1 - 2 tab PO Q6HR PRN #15 tab 04/19/21 Unknown Rx [Fioricet 50-325-40] Ibuprofen [Motrin] 800 mg PO Q8HR PRN #30 tablet 04/19/21 Unknown Rx Allergies Allergy/AdvReac Type Severity Reaction Status Date / Time No Known Allergies Allergy Verified 08/16/15 13:26 ED Review of Systems ROS: Stated complaint: HEADACHE Other details as noted in HPI Constitutional: denies: chills, fever Eyes: denies: eye pain, eye discharge, vision change ENT: other (Left facial palsy). denies: ear pain, throat pain Respiratory: denies: cough, shortness of breath, wheezing Cardiovascular: denies: chest pain, palpitations Endocrine: no symptoms reported Gastrointestinal: denies: abdominal pain, nausea, diarrhea Genitourinary: denies: urgency, dysuria Musculoskeletal: denies: back pain, joint swelling, arthralgia Skin: denies: rash, lesions Neurological: headache. denies: weakness, paresthesias Psychiatric: denies: anxiety, depression Hematological/Lymphatic: denies: easy bleeding, easy bruising ED Past Medical Hx - Past Medical History Hx Hypertension: Yes Hx Heart Attack/AMI: Yes Hx Congestive Heart Failure: No Hx Diabetes: No Hx Renal Disease: No Hx Kidney Stones: Yes Hx Asthma: No Hx COPD: No Additional medical history: Hyperlipidemia - Surgical History Additional Surgical History: 2 stents - Social History Smoking Status: Never Smoker Substance Use Type: None - Medications Home Medications: Home Medications Medication Instructions Recorded Confirmed Last Taken Type Aspirin [Aspirin BABY CHEW TAB] 81 mg PO QDAY #30 tab.chew 06/26/18 Unknown Rx AtorvaSTATin [Lipitor] 80 mg PO QHS #30 tablet 06/26/18 Unknown Rx ISOSORBIDE MONOnitrate [Imdur ER] 30 mg PO QDAY #30 tablet 06/26/18 Unknown Rx Lisinopril [Zestril TAB] 2.5 mg PO QDAY #30 tab 06/26/18 Unknown Rx Metoprolol [Lopressor TAB] 12.5 mg PO BID #60 tablet 06/26/18 Unknown Rx Ticagrelor [Brilinta] 90 mg PO BID #60 tablet 06/26/18 Unknown Rx Acyclovir 400 mg PO Q8H #30 tablet 04/19/21 Unknown Rx Butalb/Acetamin/Caff 50-325-40 1 - 2 tab PO Q6HR PRN #15 tab 04/19/21 Unknown Rx [Fioricet 50-325-40] Ibuprofen [Motrin] 800 mg PO Q8HR PRN #30 tablet 04/19/21 Unknown Rx ED Physical Exam - General Limitations: No Limitations General appearance: alert, in no apparent distress - Head Head exam: Present: atraumatic, normocephalic, normal inspection - Eye Eye exam: Present: normal appearance, PERRL, EOMI Pupils: Present: normal accommodation - ENT ENT exam: Present: normal exam, normal orophraynx, mucous membranes moist, TM's normal bilaterally, normal external ear exam, other (Left sided facial palsy) - Neck Neck exam: Present: normal inspection, full ROM - Respiratory Respiratory exam: Present: normal lung sounds bilaterally. Absent: respiratory distress, wheezes, rales, rhonchi, chest wall tenderness, accessory muscle use - Cardiovascular Cardiovascular Exam: Present: regular rate, normal rhythm, normal heart sounds. Absent: systolic murmur, diastolic murmur, rubs, gallop - GI/Abdominal GI/Abdominal exam: Present: soft, normal bowel sounds. Absent: tenderness, guarding, rebound, hyperactive bowel sounds, hypoactive bowel sounds - Extremities Exam Extremities exam: Present: normal inspection, full ROM, normal capillary refill - Back Exam Back exam: Present: normal inspection, full ROM. Absent: tenderness, CVA tenderness (R), CVA tenderness (L), muscle spasm, paraspinal tenderness, vertebral tenderness - Neurological Exam Neurological exam: Present: alert, oriented X3, CN II-XII intact, normal gait, reflexes normal - Psychiatric Psychiatric exam: Present: normal affect, normal mood - Skin Skin exam: Present: warm, dry, intact, normal color. Absent: rash ED Course Vital Signs 04/18/21 23:11 Temperature 98.1 F Pulse Rate 61 Respiratory 18 Rate Blood Pressure 132/79 O2 Sat by Pulse 99 Oximetry ED Medical Decision Making - Medical Decision Making This is a 55-year-old -[place] male with a history of hypertension and hyperlipidemia and was recently diagnosed with Richardson's palsy presents to the ED with complaint of acute onset persistent headache despite taking [id number] medications for the last 24 hours. Patient states that he is currently taking prednisone 10 mg Dosepak for his recently diagnosed Richardson's palsy 3 days ago. Patient states that the headache has been persistent and mainly on the right frontal scalp. In the ED, patient is alert and oriented x3 and is not in any distress. Patient is hemodynamically stable. Patient symptoms are likely due to a recent Richardson's palsy diagnosis which is a viral syndrome, but the patient is not taking any antiviral medications. Patient was therefore discharged home on acyclovir and medication for headache. Patient was advised to follow-up with his primary care physician in 5 to 7 days for reevaluation. Patient is advised return to the ED immediately if symptoms get worse. - Differential Diagnosis Viral syndrome; tension headache; Richardson's palsy; anxiety Critical care attestation.: If time is entered above; I have spent that time in minutes in the direct care of this critically ill patient, excluding procedure time. ED Disposition Clinical Impression: Left-sided Richardson's palsy Tension-type headache Qualifiers: Headache chronicity pattern: episodic headache Intractability: not intractable Qualified Code(s): G44.219 - Episodic tension-type headache, not intractable Disposition: DC-01 TO HOME OR SELFCARE Is pt being admited?: No Does the pt Need Aspirin: No Condition: Stable Instructions: Tension Headache, Adult, [id number], Richardson Palsy, Adult Additional Instructions: Take medication with food, drink plenty of fluids and follow-up with your p [facility] care physician in 5 to 7 days for reevaluation. Return to the ED immediately if symptoms get worse. Prescriptions: Acyclovir 400 mg PO Q8H #30 tablet Butalb/Acetamin/Caff 50-325-40 [Fioricet 50-325-40] 1 - 2 tab PO Q6HR PRN #15 tab PRN Reason: Headache Ibuprofen [Motrin] 800 mg PO Q8HR PRN #30 tablet PRN Reason: Pain , Severe (7-10) Referrals: [facility] [Provider Group] - 3-5 Days Time of Disposition: 00:46 Print Language: SINHAL[place]
== END 2021-04-19 01:32 | disposition home or self-care (01) ==
LOC: ED 22:17
DX: G51.0 Bell's palsy (principal); G44.209 Tension-type headache, unspecified, not intractable; I10 Essential (primary) hypertension; E78.5 Hyperlipidemia, unspecified; I25.2 Old myocardial infarction; Z79.899 Other long term (current) drug therapy
CPT/HCPCS: 99282